=== PATIENT | female | born 1985 | race African-American/Black ===

== ENCOUNTER 2016-07-08 23:50 | Emergency (ER) | payer OTHER ==
[~2016-07-08] VITALS: Ht 160 cm; Wt 108.9 kg
[2016-07-09 00:11] VITALS: BP 130/90
== END 2016-07-09 07:11 | disposition home or self-care (01) ==
LOC: ER 23:50
DX: G47.00 Insomnia, unspecified (principal); F41.9 Anxiety disorder, unspecified; F20.9 Schizophrenia, unspecified; F32.9 Major depressive disorder, single episode, unspecified; E11.9 Type 2 diabetes mellitus without complications; I10 Essential (primary) hypertension; F17.210 Nicotine dependence, cigarettes, uncomplicated

== ENCOUNTER 2016-07-09 08:28 | Emergency (ER) | payer MEDICAID, OTHER ==
[~2016-07-09] VITALS: Ht 160 cm; Wt 108.9 kg
[2016-07-09 08:34] VITALS: BP 153/109
[2016-07-09 09:21] LABS: Basophils # (auto) 0.2 uL; Basophils % (auto) 2.5 % (0.0-2.0); DEFINITIVE VIEW TRANSMISSION; Eosinophils # (auto) 0.3 uL; Hematocrit 36.9 % (36.0-46.0); Hemoglobin 12.2 g/dL (12.2-16.2); Lymphocytes # (auto) 2.2 uL; Lymphocytes % (auto) 24.7 % (10.0-50.0); Mean Corpuscular Volume 78.9 fL (80.0-100.0); Mean Platelet Volume 7.8 fL (7.4-10.4); Monocytes # (auto) 1.2 uL; Monocytes % (auto) 13.2 % (0.0-12.0); Neutrophils % (auto) 56.6 % (37.0-80.0); Platelet Count (auto) 472 10^3/uL (140-450); Red Cell Distribution Width 16.1 % (11.6-16.0); White Blood Cell 8.8 10^3/uL (4.4-10.8)
[2016-07-09 09:29] LABS: Urine Bilirubin Negative (Negative); Urine Blood Negative /uL (Negative); Urine Color Yellow (Yellow); Urine Mucus FEW (None Seen); Urine Nitrite Negative (Negative); Urine RBC <1 /hpf (0 - 4); Urine Squamous Epithelial Cell MOD /hpf (<5); Urine pH 5.5 (5.0-8.0)
[2016-07-09 09:30] LABS: Urine Glucose 4+ mg/dL (Normal); Urine Ketone 2+ (Negative)
[2016-07-09 09:40] LABS: Albumin 3.3 g/dL (3.4-5.0); BUN/Creatinine Ratio 10.4; Calcium 9.1 mg/dL (8.5-10.1); Potassium 3.6 mmol/L (3.5-5.1)
[2016-07-09 09:42] LABS: Bilirubin, Total 0.5 mg/dL (0.2-1.0); Total Protein 7.8 g/dL (6.4-8.2)
== END 2016-07-09 10:20 | disposition home or self-care (01) ==
LOC: ER 08:28
DX: F41.9 Anxiety disorder, unspecified (principal); F32.9 Major depressive disorder, single episode, unspecified; F20.9 Schizophrenia, unspecified; E11.9 Type 2 diabetes mellitus without complications; I10 Essential (primary) hypertension; F17.210 Nicotine dependence, cigarettes, uncomplicated
CPT/HCPCS: 36415; 80053; 80307; 81001; 81025; 85025

== ENCOUNTER 2016-07-21 21:52 | Emergency (ER) | payer MEDICAID ==
[~2016-07-21] VITALS: Ht 167.6 cm; Wt 99.8 kg
[2016-07-21 23:22] LABS: Basophils # (auto) 0.1 uL; Basophils % (auto) 0.6 % (0.0-2.0); DEFINITIVE VIEW TRANSMISSION; Eosinophils # (auto) 0.3 uL; Eosinophils % (auto) 3.4 % (0.0-7.0); Hematocrit 39.3 % (36.0-46.0); Hemoglobin 12.7 g/dL (12.2-16.2); Lymphocytes % (auto) 31.1 % (10.0-50.0); Mean Corpuscular Hemoglobin 25.7 pg (28.0-32.0); Mean Corpuscular Hgb Conc. 32.4 g/dL (32.0-36.0); Mean Corpuscular Volume 79.4 fL (80.0-100.0); Mean Platelet Volume 7.8 fL (7.4-10.4); Monocytes # (auto) 1.2 uL; Monocytes % (auto) 12.8 % (0.0-12.0); Neutrophils % (auto) 52.1 % (37.0-80.0); Platelet Count (auto) 508 10^3/uL (140-450); White Blood Cell 9.5 10^3/uL (4.4-10.8)
[2016-07-21 23:41] LABS: Albumin 3.6 g/dL (3.4-5.0); BUN/Creatinine Ratio 12.3; Calcium 9.1 mg/dL (8.5-10.1); Potassium 4.2 mmol/L (3.5-5.1)
[2016-07-21 23:43] LABS: Bilirubin, Total 0.3 mg/dL (0.2-1.0); Total Protein 8.3 g/dL (6.4-8.2)
[2016-07-22 00:02] LABS: Urine Bilirubin Negative (Negative); Urine Blood 2+ /uL (Negative); Urine Color Yellow (Yellow); Urine Glucose 4+ mg/dL (Normal); Urine Hyaline Cast FEW /lpf (0 - 2); Urine Ketone Negative (Negative); Urine Nitrite Negative (Negative); Urine RBC 1 /hpf (0 - 4); Urine Squamous Epithelial Cell FEW /hpf (<5); Urine Urobilinogen Normal (Negative)
[2016-07-22 04:00] VITALS: BP 161/127
== END 2016-07-22 04:03 | disposition home or self-care (01) ==
LOC: EDBD 21:52 → ER 21:57
DX: R51 Headache (principal); F41.9 Anxiety disorder, unspecified; E11.9 Type 2 diabetes mellitus without complications; I10 Essential (primary) hypertension; E78.5 Hyperlipidemia, unspecified; F31.9 Bipolar disorder, unspecified; F20.9 Schizophrenia, unspecified; F17.210 Nicotine dependence, cigarettes, uncomplicated; Z85.3 Personal history of malignant neoplasm of breast
CPT/HCPCS: 36415; 70450; 80053; 80307; 81001; 81025; 85025

== ENCOUNTER 2016-08-09 22:13 | Emergency (ER) | payer MEDICAID ==
[~2016-08-09] VITALS: Ht 167.6 cm; Wt 127.0 kg
[2016-08-10] MEDS ORDERED: LORazepam 2MG/ML-1ML VIAL IV ONE (03:15)
[2016-08-10] MEDS ORDERED: diphenhdrAMINE HCL 50 MG/1 ML VL IV ONE (03:15)
[2016-08-10] MEDS ORDERED: HALOPERIDOL LACTATE 5 MG/ML INJ VIAL IM ONE (03:15)
[2016-08-10 04:07] LABS: Basophils # (auto) 0 uL; Basophils % (auto) 0.4 % (0.0-2.0); CONDITION Y; DEFINITIVE SEE PRINTOUT; Eosinophils # (auto) 0.1 uL; Eosinophils % (auto) 0.9 % (0.0-7.0); Hematocrit 40.1 % (36.0-46.0); Hemoglobin 12.8 g/dL (12.2-16.2); Lymphocytes # (auto) 2.3 uL; Lymphocytes % (auto) 20.3 % (10.0-50.0); Mean Corpuscular Hemoglobin 25.2 pg (28.0-32.0); Mean Corpuscular Volume 78.7 fL (80.0-100.0); Mean Platelet Volume 8.1 fL (7.4-10.4); Monocytes # (auto) 1.4 uL; Monocytes % (auto) 12.7 % (0.0-12.0); Neutrophils # (auto) 7.3 uL; Neutrophils % (auto) 65.7 % (37.0-80.0); Platelet Count (auto) 518 10^3/uL (140-450); White Blood Cell 11.2 10^3/uL (4.4-10.8)
[2016-08-10 04:29] LABS: Anion Gap 11 (5-15); BUN/Creatinine Ratio 15.3; Blood Urea Nitrogen 11 mg/dL (7-18); Calcium 9.2 mg/dL (8.5-10.1); Carbon Dioxide 22 mmol/L (21-32); Chloride 112 mmol/L (98-107); GFR African American 122 mL/min; GFR Non-African American 101 mL/min; Glucose 108 mg/dL (74-106); Potassium 3.9 mmol/L (3.5-5.1); Sodium 145 mmol/L (136-145)
[2016-08-10 08:15] LABS: Urine Bilirubin Negative (Negative); Urine Blood Negative /uL (Negative); Urine Color Yellow (Yellow); Urine Mucus FEW (None Seen); Urine Nitrite Negative (Negative); Urine RBC <1 /hpf (0 - 4); Urine Squamous Epithelial Cell FEW /hpf (<5); Urine Urobilinogen Normal (Negative); Urine pH 6.5 (5.0-8.0)
[2016-08-10 08:16] LABS: Urine Glucose 3+ mg/dL (Normal); Urine Ketone 3+ (Negative)
[2016-08-10] MEDS ORDERED: METF-370 PO (09:50)
[2016-08-10] MEDS ORDERED: CANA100T PO (09:50)
[2016-08-10] MEDS ORDERED: ALPR1TAB7 PO (09:50)
[2016-08-10] MEDS ORDERED: AMLO10TA2 PO (09:50)
[2016-08-10] MEDS ORDERED: FLUO20CA90 PO (09:50)
[2016-08-10] MEDS ORDERED: TOPI100T68 PO (09:52)
[2016-08-10] MEDS ORDERED: HYDR50CA2 PO (09:52)
[2016-08-10] MEDS ORDERED: TOPIRAMATE 100 MG TAB PO ONE (11:00)
[2016-08-10] MEDS ORDERED: metFORMIN HYDROCHLORIDE 500 MG TAB PO ONE (11:00)
[2016-08-10] MEDS ORDERED: metFORMIN HYDROCHLORIDE 850 MG TAB PO ONE (11:00)
[2016-08-10] MEDS ORDERED: hydrOXYzine PAMOATE 25 MG CAP PO ONE (11:00)
[2016-08-10] MEDS ORDERED: FLUoxetine HCL 20 MG CAP PO ONE (11:00)
[2016-08-10] MEDS ORDERED: ALPRAZolam 0.5 MG TAB PO ONE (11:00)
[2016-08-10] MEDS ORDERED: amLODIPine BESYLATE 5 MG TAB PO ONE (11:00)
[2016-08-10] MEDS ORDERED: metFORMIN HYDROCHLORIDE 850 MG TAB PO SCH (18:00)
[2016-08-10] MEDS: metFORMIN HYDROCHLORIDE 500 MG TAB PO SCH (21:22)
[2016-08-11] MEDS: ALPRAZolam 0.5 MG TAB PO SCH ×3 (04:20→22:11)
[2016-08-11] MEDS: metFORMIN HYDROCHLORIDE 500 MG TAB PO SCH ×2 (08:38→19:02)
[2016-08-11] MEDS: hydrOXYzine PAMOATE 25 MG CAP PO SCH (10:00)
[2016-08-11] MEDS: TOPIRAMATE 100 MG TAB PO SCH (10:00)
[2016-08-11] MEDS: FLUoxetine HCL 20 MG CAP PO SCH (10:25)
[2016-08-11] MEDS: amLODIPine BESYLATE 5 MG TAB PO SCH (10:25)
[2016-08-11] MEDS ORDERED: QUEtiapine FUMARATE 100 MG TAB PO SCH (22:00)
[2016-08-12] MEDS ORDERED: metFORMIN HYDROCHLORIDE 500 MG TAB ONE ×2 (08:07→18:52)
[2016-08-12] MEDS: metFORMIN HYDROCHLORIDE 500 MG TAB PO SCH ×2 (08:21→18:00)
[2016-08-12] MEDS ORDERED: FLUoxetine HCL 10 MG CAP ONE (10:07)
[2016-08-12] MEDS ORDERED: TOPIRAMATE 100 MG TAB ONE (10:07)
[2016-08-12] MEDS ORDERED: amLODIPine BESYLATE 5 MG TAB ONE (10:07)
[2016-08-12] MEDS ORDERED: ALPRAZolam 0.5 MG TAB ONE (10:09)
[2016-08-12] MEDS ORDERED: hydrOXYzine PAMOATE 25 MG CAP ONE (10:09)
[2016-08-12 10:13] VITALS: BP 147/99
[2016-08-12] MEDS: ALPRAZolam 0.5 MG TAB PO SCH (10:18)
[2016-08-12] MEDS: hydrOXYzine PAMOATE 25 MG CAP PO SCH (10:18)
[2016-08-12] MEDS: FLUoxetine HCL 20 MG CAP PO SCH (10:18)
[2016-08-12] MEDS: TOPIRAMATE 100 MG TAB PO SCH (10:18)
[2016-08-12] MEDS: amLODIPine BESYLATE 5 MG TAB PO SCH (10:18)
== END 2016-08-12 21:50 | disposition home or self-care (01) ==
LOC: ER 22:15
DX: F32.9 Major depressive disorder, single episode, unspecified (principal); F41.9 Anxiety disorder, unspecified; R45.851 Suicidal ideations; E11.9 Type 2 diabetes mellitus without complications; F20.1 Disorganized schizophrenia; I10 Essential (primary) hypertension; Z85.3 Personal history of malignant neoplasm of breast; F17.210 Nicotine dependence, cigarettes, uncomplicated
CPT/HCPCS: 36415; 80048; 80307; 80320; 81001; 82962; 84443; 84702; 85025; 96372; 96374; 96375; 99285; J1200; J1630; J2060; J7030

== ENCOUNTER 2016-12-26 23:44 | Emergency (ER) | payer MEDICAID ==
[~2016-12-26] VITALS: Ht 162.6 cm; Wt 90.7 kg
[~2016-12-26 23:44] MED LIST: ALPR1TAB7 PO; AMLO10TA2 PO; CANA100T PO; FLUO20CA90 PO; HYDR50CA2 PO; METF-370 PO; TOPI100T68 PO
[2016-12-27] MEDS ORDERED: cloNIDine HCL 0.1 MG TAB PO ONE ×2 (00:30→03:30)
[2016-12-27 03:24] VITALS: BP 162/118
[2016-12-27] MEDS ORDERED: LORazepam 0.5 MG TAB PO ONE (03:45)
== END 2016-12-27 05:20 | disposition home or self-care (01) ==
LOC: EDBD 23:44 → ER 23:49
DX: I10 Essential (primary) hypertension (principal); J06.9 Acute upper respiratory infection, unspecified; E11.9 Type 2 diabetes mellitus without complications; F17.210 Nicotine dependence, cigarettes, uncomplicated; Z79.899 Other long term (current) drug therapy

== ENCOUNTER 2016-12-28 21:15 | Emergency (ER) | payer MEDICAID ==
[~2016-12-28] VITALS: Ht 160 cm; Wt 108.9 kg
[2016-12-28 21:26] VITALS: BP 164/105
== END 2016-12-29 06:33 | disposition home or self-care (01) ==
LOC: ER 21:19
DX: R51 Headache (principal); E11.9 Type 2 diabetes mellitus without complications; I10 Essential (primary) hypertension; F17.210 Nicotine dependence, cigarettes, uncomplicated
CPT/HCPCS: 70450; 70486; 82962

== ENCOUNTER → 2017-02-04 | Emergency (ER) | payer MEDICAID | END | disposition left against medical advice (07) | LOC: ER 16:59 | DX: R51 Headache (principal); Z53.21 Procedure and treatment not carried out due to patient leaving prior to being seen by health care provider ==

== ENCOUNTER 2017-02-12 20:41 | Emergency (ER) | payer MEDICAID ==
[~2017-02-12] VITALS: Ht 160 cm; Wt 127.0 kg
[2017-02-12 20:51] VITALS: BP 149/108
[2017-02-12 21:23] LABS: Basophils # (auto) 0.1 uL; Basophils % (auto) 1.6 % (0.0-2.0); Eosinophils # (auto) 0.2 uL; Eosinophils % (auto) 3.5 % (0.0-7.0); Hematocrit 43.6 % (36.0-46.0); Lymphocytes # (auto) 2.3 uL; Mean Corpuscular Hemoglobin 31.8 pg (28.0-32.0); Mean Corpuscular Hgb Conc. 34.3 g/dL (32.0-36.0); Mean Corpuscular Volume 92.5 fL (80.0-100.0); Monocytes # (auto) 0.7 uL; Monocytes % (auto) 10.4 % (0.0-12.0); Neutrophils # (auto) 3.4 uL; Neutrophils % (auto) 50.5 % (37.0-80.0); Nucleated Red Blood Cells % 0.2 %; Platelet Count (auto) 303 10^3/uL (140-450); Red Blood Cells 4.72 10^6/uL (4.0-5.20); Red Cell Distribution Width 13.6 % (11.8-14.3); White Blood Cell 6.7 10^3/uL (4.4-10.8)
[2017-02-12 21:51] LABS: Alanine Aminotransferase 55 U/L (13-56); Albumin 4.3 g/dL (3.4-5.0); Alkaline Phosphatase 83 U/L (45-117); Anion Gap 11 (5-15); Aspartate Aminotransferase 30 U/L (15-37); Bilirubin, Total 0.5 mg/dL (0.2-1.0); Blood Alcohol < 3.0 mg/dL (0-5); Blood Urea Nitrogen 11 mg/dL (7-18); Calcium 8.9 mg/dL (8.5-10.1); Carbon Dioxide 24 mmol/L (21-32); Chloride 103 mmol/L (98-107); GFR African American 147 mL/min; GFR Non-African American 122 mL/min; Glucose 137 mg/dL (74-106); Potassium 3.5 mmol/L (3.5-5.1); Sodium 138 mmol/L (136-145); Total Protein 7.7 g/dL (6.4-8.2)
[2017-02-12] MEDS ORDERED: ACETAMINOPHEN 325 MG TAB PO ONE (22:15)
== END 2017-02-13 07:10 | disposition home or self-care (01) ==
LOC: EDBD 20:41 → ER 20:43
DX: F41.9 Anxiety disorder, unspecified (principal); F20.9 Schizophrenia, unspecified; E11.9 Type 2 diabetes mellitus without complications; F32.9 Major depressive disorder, single episode, unspecified; I10 Essential (primary) hypertension; F17.210 Nicotine dependence, cigarettes, uncomplicated
CPT/HCPCS: 36415; 80053; 80320; 85025

== ENCOUNTER 2017-09-15 05:51 | Emergency (ER) | payer MEDICAID ==
[~2017-09-15] VITALS: Ht 162.6 cm; Wt 90.7 kg
[2017-09-15] MEDS ORDERED: cloNIDine HCL 0.1 MG TAB ONE (06:04)
[2017-09-15 06:12] VITALS: BP 200/120
[2017-09-15] MEDS ORDERED: cloNIDine HCL 0.1 MG TAB PO ONE (06:30)
[2017-09-15 06:55] LABS: Alcohol, Urine < 3.0 mg/dL (0-5); Amphetamine Screen, Urine NEGATIVE (NEGATIVE); Barbiturate Scree,Urine NEGATIVE (NEGATIVE); Benzodiazephine Screen, Urine NEGATIVE (NEGATIVE); Cannabinoid Screen, Urine NEGATIVE (NEGATIVE); Cocaine Screen, Urine NEGATIVE (NEGATIVE); Opiate Scree,Urine NEGATIVE (NEGATIVE); Phencyclidine Screen, Urine NEGATIVE (NEGATIVE)
[2017-09-15 07:21] LABS: Basophils # (auto) 0.1 uL; Eosinophils # (auto) 0.2 uL; Eosinophils % (auto) 2.3 % (0.0-7.0); Hematocrit 36.9 % (36.0-46.0); Hemoglobin 12.5 g/dL (12.2-16.2); Lymphocytes # (auto) 1.7 uL; Lymphocytes % (auto) 25.3 % (10.0-50.0); Mean Corpuscular Hemoglobin 29.6 pg (28.0-32.0); Mean Corpuscular Hgb Conc. 33.9 g/dL (32.0-36.0); Mean Corpuscular Volume 87.4 fL (80.0-100.0); Monocytes # (auto) 0.8 uL; Monocytes % (auto) 11.8 % (0.0-12.0); Neutrophils % (auto) 59.6 % (37.0-80.0); Nucleated Red Blood Cells % 0.1 %; Platelet Count (auto) 310 10^3/uL (140-450); Red Blood Cells 4.22 10^6/uL (4.0-5.20); Red Cell Distribution Width 14.3 % (11.8-14.3); White Blood Cell 6.7 10^3/uL (4.4-10.8)
[2017-09-15 07:39] LABS: Albumin 3.7 g/dL (3.4-5.0); Anion Gap 11 (5-15); BUN/Creatinine Ratio 12.3; Blood Alcohol < 3.0 mg/dL (0-5); Blood Urea Nitrogen 10 mg/dL (7-18); Calcium 8.8 mg/dL (8.5-10.1); Carbon Dioxide 20 mmol/L (21-32); Chloride 111 mmol/L (98-107); GFR African American 105 mL/min; GFR Non-African American 87 mL/min; Glucose 108 mg/dL (74-106); Potassium 3.9 mmol/L (3.5-5.1); Sodium 142 mmol/L (136-145)
[2017-09-15 07:40] LABS: Salicylate 2.6 mg/dL (2.8-20.0)
[2017-09-15 07:42] LABS: Acetaminophen < 2.0 ug/mL (10-30); Alanine Aminotransferase 33 U/L (13-56); Alkaline Phosphatase 74 U/L (45-117); Aspartate Aminotransferase 22 U/L (15-37); Bilirubin, Total 0.8 mg/dL (0.2-1.0); Total Protein 7.1 g/dL (6.4-8.2)
[2017-09-15] MEDS ORDERED: LORazepam 2MG/ML-1ML VIAL ONE (08:05)
[2017-09-15] MEDS ORDERED: LORazepam 2MG/ML-1ML VIAL IV ONE (08:10)
[2017-09-15] MEDS ORDERED: LORazepam 0.5 MG TAB PO ONE (08:15)
== END 2017-09-15 09:48 | disposition home or self-care (01) ==
LOC: EDBD 05:51 → EDUNIT# 05:51 → ER 05:51
DX: F41.9 Anxiety disorder, unspecified (principal); F20.9 Schizophrenia, unspecified; F31.9 Bipolar disorder, unspecified; I10 Essential (primary) hypertension; E11.9 Type 2 diabetes mellitus without complications; F17.210 Nicotine dependence, cigarettes, uncomplicated
CPT/HCPCS: 36415; 80053; 80307; 80320; 80329; 85025; 96374; 99284; J2060

== ENCOUNTER 2018-12-11 19:40 | Emergency (ER) | payer MEDICAID ==
[~2018-12-11] VITALS: Ht 177.8 cm; Wt 113.4 kg
[~2018-12-11 19:40] MED LIST changes: +AMLO10TA13 PO; -AMLO10TA2 PO
[2018-12-11 21:06] LABS: Basophils # (auto) 0.1 uL; Basophils % (auto) 1.3 % (0.0-2.0); Eosinophils # (auto) 0.4 uL; Eosinophils % (auto) 4.2 % (0.0-7.0); Hematocrit 42.2 % (36.0-46.0); Hemoglobin 14.3 g/dL (12.2-16.2); Lymphocytes # (auto) 2.5 uL; Lymphocytes % (auto) 30.4 % (10.0-50.0); Mean Corpuscular Hemoglobin 30.6 pg (28.0-32.0); Mean Corpuscular Hgb Conc. 33.9 g/dL (32.0-36.0); Mean Corpuscular Volume 90.3 fL (80.0-100.0); Monocytes # (auto) 0.9 uL; Monocytes % (auto) 10.3 % (0.0-12.0); Neutrophils # (auto) 4.5 uL; Neutrophils % (auto) 53.8 % (37.0-80.0); Platelet Count (auto) 303 10^3/uL (140-450); Red Blood Cells 4.67 10^6/uL (4.0-5.20); Red Cell Distribution Width 13.5 % (11.8-14.3); White Blood Cell 8.3 10^3/uL (4.4-10.8)
[2018-12-11 21:30] LABS: Albumin 3.8 g/dL (3.4-5.0); BUN/Creatinine Ratio 5.7; Bilirubin, Total 0.4 mg/dL (0.2-1.0); Calcium 8.9 mg/dL (8.5-10.1); Potassium 3.5 mmol/L (3.5-5.1); Total Protein 7.1 g/dL (6.4-8.2)
[2018-12-11 22:45] VITALS: BP 117/95
[2018-12-12] MEDS ORDERED: IPRATROPIUM BROM 0.5 MG/2.5ML INH SOL NEB ONE
[2018-12-12] MEDS ORDERED: methylPREDNISolone SOD SUCC 125 MG/2 ML VL IV ONE
[2018-12-12] MEDS ORDERED: ALBUTEROL SULF 2.5 MG/0.5ML(0.5%) NEB SOLN NEB ONE
[2018-12-12] MEDS ORDERED: cefTRIAXone 1GM/50ML D5W 50 ML IV ONE
== END 2018-12-12 02:38 | disposition home or self-care (01) ==
LOC: EDBD 19:40 → ER 19:40
DX: J44.1 Chronic obstructive pulmonary disease with (acute) exacerbation (principal); J01.00 Acute maxillary sinusitis, unspecified; E11.9 Type 2 diabetes mellitus without complications; I10 Essential (primary) hypertension; F17.210 Nicotine dependence, cigarettes, uncomplicated
CPT/HCPCS: 36415; 71045; 80053; 85025; 94640; 96365; 96375; 99284; J0696; J2930; J7611; J7644

== ENCOUNTER 2021-05-31 18:16 | Emergency (ER) | payer MEDICAID ==
[~2021-05-31] VITALS: Ht 167.6 cm; Wt 131.5 kg
[~2021-05-31 18:16] MED LIST changes: +AMLO-496 PO; -AMLO10TA13 PO
[2021-06-01 05:32] VITALS: BP 144/98
== END 2021-06-01 05:24 | disposition left against medical advice (07) ==
LOC: EDBD 18:16 → ER 18:16
DX: R45.851 Suicidal ideations (principal); F20.9 Schizophrenia, unspecified; I10 Essential (primary) hypertension

== ENCOUNTER 2021-10-31 13:03 | Emergency (ER) | payer MEDICAID ==
[~2021-10-31] VITALS: Ht 172.7 cm; Wt 136.4 kg
[2021-10-31] MEDS ORDERED: LORazepam 2MG/ML-1ML VIAL IV ONE (13:15)
[2021-10-31 13:19] VITALS: BP 121/86
[2021-10-31 13:40] LABS: Basophils # (auto) 0.1 10 ^3/uL (0-0.2); Basophils % (auto) 1.3 % (0.0-2.0); Eosinophils # (auto) 0.2 10 ^3/uL (0-0.8); Eosinophils % (auto) 4.7 % (0.0-7.0); Hematocrit 44.2 % (36.0-46.0); Hemoglobin 14.4 g/dL (12.2-16.2); Lymphocytes # (auto) 1.9 10 ^3/uL (0.4-5.4); Lymphocytes % (auto) 39.4 % (10.0-50.0); Mean Corpuscular Hemoglobin 29.1 pg (28.0-32.0); Mean Corpuscular Hgb Conc. 32.5 g/dL (32.0-36.0); Mean Corpuscular Volume 89.7 fL (80.0-100.0); Monocytes # (auto) 0.5 10 ^3/uL (0-1.3); Monocytes % (auto) 11.3 % (0.0-12.0); Neutrophils # (auto) 2.1 10 ^3/uL (1.6-8.6); Neutrophils % (auto) 43.3 % (37.0-80.0); Nucleated Red Blood Cells % 0.2 %; Red Blood Cells 4.93 10^6/uL (4.0-5.20); Red Cell Distribution Width 13.4 % (11.8-14.3); White Blood Cell 4.8 10^3/uL (4.4-10.8)
[2021-10-31] MEDS ORDERED: LORazepam 0.5 MG TAB PO ONE (13:45)
[2021-10-31 14:00] LABS: Albumin 3.5 g/dL (3.4-5.0); Calcium 8.7 mg/dL (8.5-10.1); Potassium 3.8 mmol/L (3.5-5.1)
[2021-10-31 14:03] LABS: BUN/Creatinine Ratio 17.2; Bilirubin, Total 0.6 mg/dL (0.2-1.0); Total Protein 6.5 g/dL (6.4-8.2)
[2021-10-31 18:08] LABS: Urine Bacteria FEW /hpf (None Seen); Urine Blood Negative /uL (Negative); Urine Specific Gravity 1.003 (1.001-1.035); Urine WBC <1 /hpf (0 - 5)
[2021-10-31 18:20] LABS: Alcohol, Urine < 3.0 mg/dL (0-10); Amphetamine Screen, Urine NEGATIVE (NEGATIVE); Barbiturate Scree,Urine NEGATIVE (NEGATIVE); Benzodiazephine Screen, Urine NEGATIVE (NEGATIVE); Cannabinoid Screen, Urine NEGATIVE (NEGATIVE); Cocaine Screen, Urine NEGATIVE (NEGATIVE); Opiate Scree,Urine NEGATIVE (NEGATIVE); Phencyclidine Screen, Urine NEGATIVE (NEGATIVE)
== END 2021-10-31 22:15 | disposition home or self-care (01) ==
LOC: ER 13:03 → EDBD 13:03 → ER 22:15
DX: F41.8 Other specified anxiety disorders (principal); I10 Essential (primary) hypertension; E11.9 Type 2 diabetes mellitus without complications; F17.210 Nicotine dependence, cigarettes, uncomplicated; Z79.899 Other long term (current) drug therapy; Z88.8 Allergy status to other drugs, medicaments and biological substances
CPT/HCPCS: 36415; 71045; 80053; 80307; 81001; 81025; 85025; 85379; 93005

== ENCOUNTER 2022-07-03 11:10 | Emergency (ER) | payer MEDICAID ==
[~2022-07-03] VITALS: Ht 157.5 cm; Wt 140.4 kg
[2022-07-03 13:56] LABS: Basophils # (auto) 0.1 10 ^3/uL (0-0.2); Basophils % (auto) 1.1 % (0.0-2.0); Eosinophils # (auto) 0.2 10 ^3/uL (0-0.8); Eosinophils % (auto) 2.9 % (0.0-7.0); Hematocrit 48.1 % (36.0-46.0); Hemoglobin 16.1 g/dL (12.2-16.2); Lymphocytes # (auto) 1.7 10 ^3/uL (0.4-5.4); Lymphocytes % (auto) 23.6 % (10.0-50.0); Mean Corpuscular Hemoglobin 30.3 pg (28.0-32.0); Mean Corpuscular Hgb Conc. 33.5 g/dL (32.0-36.0); Mean Corpuscular Volume 90.2 fL (80.0-100.0); Monocytes % (auto) 13.5 % (0.0-12.0); Neutrophils # (auto) 4.2 10 ^3/uL (1.6-8.6); Neutrophils % (auto) 58.9 % (37.0-80.0); Nucleated Red Blood Cells % 0.1 %; Red Blood Cells 5.33 10^6/uL (4.0-5.20); White Blood Cell 7.1 10^3/uL (4.4-10.8)
[2022-07-03 14:16] LABS: Albumin 3.9 g/dL (3.4-5.0); Calcium 9.5 mg/dL (8.5-10.1); Potassium 3.6 mmol/L (3.5-5.1)
[2022-07-03 14:20] LABS: BUN/Creatinine Ratio 7.5 (10.0-20.0); Bilirubin, Total 0.7 mg/dL (0.2-1.0); Total Protein 7.6 g/dL (6.4-8.2)
[2022-07-03 14:52] VITALS: BP 172/97
[2022-07-03] MEDS: cloNIDine HCL 0.1 MG TAB PO ONE (15:07)
[2022-07-03 15:56] LABS: Urine Bacteria FEW /hpf (None Seen); Urine Blood Negative /uL (Negative); Urine Mucus FEW (None Seen); Urine Specific Gravity 1.028 (1.001-1.035); Urine WBC 1 /hpf (0 - 5)
== END 2022-07-03 16:28 | disposition home or self-care (01) ==
LOC: ER 11:10
DX: F20.9 Schizophrenia, unspecified (principal); I10 Essential (primary) hypertension; R80.9 Proteinuria, unspecified; E11.8 Type 2 diabetes mellitus with unspecified complications; F17.210 Nicotine dependence, cigarettes, uncomplicated; F41.9 Anxiety disorder, unspecified; Z32.02 Encounter for pregnancy test, result negative; Z88.6 Allergy status to analgesic agent
CPT/HCPCS: 36415; 80053; 81001; 81025; 85025

== ENCOUNTER 2023-01-10 11:36 | Emergency (ER) | payer MEDICAID ==
[~2023-01-10] VITALS: Ht 157.5 cm; Wt 137.0 kg
[~2023-01-10 11:36] MED LIST changes: -AMLO-496 PO; +AMLO1TAB23 PO
[2023-01-10 12:23] VITALS: BP 132/75; PULSE 107; RESP 18; O2SAT 98
[2023-01-10 14:10] LABS: Alanine Aminotransferase 24 U/L (7-40); Albumin 4.3 g/dL (3.2-4.8); Alkaline Phosphatase 70 U/L (46-116); Anion Gap 8 (5-15); Aspartate Aminotransferase 19 U/L (13-40); BUN/Creatinine Ratio 8.3 (10.0-20.0); Bilirubin, Total 0.5 mg/dL (0.2-1.0); Blood Urea Nitrogen 9 mg/dL (9-23); Calcium 9.5 mg/dL (8.5-10.1); Carbon Dioxide 25 mmol/L (20-30); Chloride 104 mmol/L (98-107); Glucose 108 mg/dL (74-106); Potassium 3.5 mmol/L (3.5-5.1); Sodium 137 mmol/L (136-145)
[2023-01-10 14:11] LABS: Basophils # (auto) 0.1 10 ^3/uL (0-0.2); Basophils % (auto) 1.2 % (0.0-2.0); Eosinophils # (auto) 0.2 10 ^3/uL (0-0.8); Eosinophils % (auto) 3.3 % (0.0-7.0); Hematocrit 45.1 % (36.0-46.0); Hemoglobin 15.2 g/dL (12.2-16.2); Lymphocytes # (auto) 2.3 10 ^3/uL (0.4-5.4); Lymphocytes % (auto) 35.3 % (10.0-50.0); Mean Corpuscular Hemoglobin 31.1 pg (28.0-32.0); Mean Corpuscular Hgb Conc. 33.8 g/dL (32.0-36.0); Mean Corpuscular Volume 92.1 fL (80.0-100.0); Monocytes # (auto) 0.7 10 ^3/uL (0-1.3); Neutrophils # (auto) 3.2 10 ^3/uL (1.6-8.6); Neutrophils % (auto) 49.2 % (37.0-80.0); Red Blood Cells 4.89 10^6/uL (4.0-5.20); Red Cell Distribution Width 13.7 % (11.8-14.3); Total Protein 6.6 g/dL (5.7-8.2); White Blood Cell 6.6 10^3/uL (4.4-10.8)
== END 2023-01-11 05:35 | disposition left against medical advice (07) ==
LOC: ER 11:36
DX: F41.9 Anxiety disorder, unspecified (principal); I10 Essential (primary) hypertension; E11.9 Type 2 diabetes mellitus without complications; F32.9 Major depressive disorder, single episode, unspecified; F20.9 Schizophrenia, unspecified; F17.210 Nicotine dependence, cigarettes, uncomplicated; Z85.9 Personal history of malignant neoplasm, unspecified; Z98.890 Other specified postprocedural states; Z88.8 Allergy status to other drugs, medicaments and biological substances; Z79.899 Other long term (current) drug therapy
CPT/HCPCS: 36415; 71045; 80053; 83880; 85025

== ENCOUNTER 2023-03-05 18:25 | Inpatient (IN) | payer MEDICAID ==
[~2023-03-05] VITALS: Ht 157.5 cm; Wt 139.1 kg
[2023-03-05] MEDS ORDERED: cloNIDine HCL 0.1 MG TAB PO ONE (19:00)
[2023-03-05 19:33] LABS: Basophils # (auto) 0.1 10 ^3/uL (0-0.2); Basophils % (auto) 1.2 % (0.0-2.0); Eosinophils # (auto) 0.3 10 ^3/uL (0-0.8); Eosinophils % (auto) 2.6 % (0.0-7.0); Hematocrit 44.4 % (36.0-46.0); Hemoglobin 14.9 g/dL (12.2-16.2); Lymphocytes # (auto) 2.8 10 ^3/uL (0.4-5.4); Lymphocytes % (auto) 28.4 % (10.0-50.0); Mean Corpuscular Hemoglobin 30.5 pg (28.0-32.0); Mean Corpuscular Hgb Conc. 33.5 g/dL (32.0-36.0); Mean Corpuscular Volume 91.1 fL (80.0-100.0); Monocytes # (auto) 1.2 10 ^3/uL (0-1.3); Monocytes % (auto) 11.7 % (0.0-12.0); Neutrophils # (auto) 5.6 10 ^3/uL (1.6-8.6); Neutrophils % (auto) 56.1 % (37.0-80.0); Nucleated Red Blood Cells % 0.1 %; Red Blood Cells 4.88 10^6/uL (4.0-5.20); Red Cell Distribution Width 13.2 % (11.8-14.3)
[2023-03-05] MEDS ORDERED: ACETAMINOPHEN 325 MG TAB PO ONE (19:45)
[2023-03-05] MEDS ORDERED: LORazepam 0.5 MG TAB PO ONE (19:45)
[2023-03-05] MEDS ORDERED: amLODIPine BESYLATE 5 MG TAB PO ONE (19:45)
[2023-03-05] MEDS ORDERED: FAMOTIDINE 20 MG TAB PO ONE (19:45)
[2023-03-05 19:48] VITALS: PULSE 91; RESP 18; O2SAT 94
[2023-03-05 19:54] LABS: Alanine Aminotransferase 26 U/L (7-40); Albumin 4.2 g/dL (3.2-4.8); Alkaline Phosphatase 69 U/L (46-116); Anion Gap 6 (5-15); Aspartate Aminotransferase 22 U/L (13-40); BUN/Creatinine Ratio 13.7 (10.0-20.0); Bilirubin, Total 0.9 mg/dL (0.2-1.0); Blood Urea Nitrogen 13 mg/dL (9-23); Calcium 9.2 mg/dL (8.7-10.4); Carbon Dioxide 24 mmol/L (20-30); Chloride 107 mmol/L (98-107); Glucose 96 mg/dL (74-106); Sodium 137 mmol/L (136-145); Total Protein 6.3 g/dL (5.7-8.2)
[2023-03-05 20:06] LABS: Urine Bacteria MOD /hpf (None Seen); Urine Blood Negative /uL (Negative); Urine Clarity Clear (Clear); Urine Color Colorless (Yellow); Urine Protein, UAD Negative (Negative); Urine Specific Gravity 1.005 (1.001-1.035); Urine Urobilinogen Normal (Negative); Urine WBC <1 /hpf (0 - 5); Urine pH 5.5 (5.0-8.0)
[2023-03-05 20:18] LABS: Amphetamine Screen, Urine Neg (NEGATIVE); Barbiturate Scree,Urine Neg (NEGATIVE); Benzodiazephine Screen, Urine Neg (NEGATIVE); Cannabinoid Screen, Urine Neg (NEGATIVE); Cocaine Screen, Urine Neg (NEGATIVE); Opiate Scree,Urine Neg (NEGATIVE); Phencyclidine Screen, Urine Neg (NEGATIVE)
[2023-03-05 20:21] LABS: Magnesium 1.6 mg/dL (1.6-2.6)
[2023-03-05] MEDS ORDERED: ATORVASTATIN 20 MG TAB PO ONE (20:30)
[2023-03-05] MEDS ORDERED: ENOXAPARIN SOD 120 MG/0.8 ML SYRINGE SC ONE (20:30)
[2023-03-05] MEDS ORDERED: NITROGLYCERIN 0.4MG/HR TOPICAL PATCH TD ONE (20:30)
[2023-03-05] MEDS ORDERED: ASPirin 81 mg TAB PO ONE (20:30)
[2023-03-05 21:04] LABS: Triglycerides 125 mg/dL (< 150)
[2023-03-05 21:05] LABS: LDL Cholesterol 110 mg/dL (< 100)
[2023-03-05 21:06] LABS: Cholesterol 163 mg/dL (< 200); HDL Cholesterol 35 mg/dL (40-59)
[2023-03-05 21:30] LABS: Blood Alcohol 5.8 mg/dL (<10)
[2023-03-05] MEDS ORDERED: DOCUSATE SOD 100 MG CAP PO PRN (22:15)
[2023-03-05] MEDS ORDERED: NITROGLYCERIN 0.4 MG SL TAB SL PRN (22:15)
[2023-03-05] MEDS ORDERED: MORPHINE SULFATE INJ 2 MG/ml SYRG IV PRN ×2 (22:15)
[2023-03-05] MEDS ORDERED: ONDANSETRON HCL 4 MG/2 ML VIAL IV PRN (22:15)
[2023-03-05] MEDS ORDERED: HYDROcodone-ACET 5/325MG TAB PO PRN (22:15)
[2023-03-05] MEDS ORDERED: ACETAMINOPHEN 325 MG TAB PO PRN (22:15)
[2023-03-05] MEDS ORDERED: hydrALAZINE HCL 20 MG/ML VL IV PRN (22:15)
[2023-03-05] MEDS ORDERED: LABETALOL HCL 5 MG/ML 4ML SYRINGE IV PRN (22:15)
[2023-03-05] MEDS ORDERED: METOPROLOL TARTRATE 25 MG TAB PO SCH (22:15)
[2023-03-05] MEDS ORDERED: DEXTROSE (50%) 50ML SYRG IV PRN (22:30)
[2023-03-05] MEDS ORDERED: IOHEXOL 350 MG/ML 100ML IJ ONE (22:51)
[2023-03-06] MEDS ORDERED: ATORVASTATIN 20 MG TAB ONE (00:33)
[2023-03-06] MEDS ORDERED: ASPirin-EC 81 mg tab PO ONE (00:33)
[2023-03-06] MEDS ORDERED: ENOXAPARIN SOD 120 MG/0.8 ML SYRINGE SC ONE (00:33)
[2023-03-06] MEDS ORDERED: NITROGLYCERIN 0.2MG/HR TOPICAL PATCH TD ONE (00:33)
[2023-03-06] MEDS ORDERED: LOSARTAN POTASSIUM 50 MG TAB PO SCH ×2 (10:00)
[2023-03-06] MEDS ORDERED: ENOXAPARIN SOD 40 MG/0.4 ML SYRINGE SC SCH ×2 (10:00)
[2023-03-06] MEDS ORDERED: NIFEdipine ER 30 MG TAB PO SCH (10:00)
[2023-03-06] MEDS ORDERED: buPROPion HCL 100 MG TAB PO SCH (10:00)
[2023-03-06] MEDS ORDERED: ASPirin 81 mg TAB PO SCH (10:00)
[2023-03-06] MEDS ORDERED: ATORVASTATIN 20 MG TAB PO SCH (10:00)
[2023-03-06] MEDS ORDERED: MAGNESIUM SULFATE 1GM/100ML 100 ML IV ONE (11:00)
[2023-03-06] MEDS ORDERED: cloNIDine HCL 0.1 MG TAB PO ONE (11:00)
[2023-03-06] MEDS ORDERED: hydroCHLOROthiazide 25 MG TAB PO ONE (11:00)
[2023-03-06] MEDS ORDERED: ENOXAPARIN SOD 40 MG/0.4 ML SYRINGE SC ONE (11:00)
[2023-03-06] MEDS ORDERED: DEXTROSE (50%) 50ML SYRG IV PRN (11:00)
[2023-03-06] MEDS ORDERED: ASPirin 81 mg TAB PO ONE (11:00)
[2023-03-06] MEDS ORDERED: hydrALAZINE HCL 20 MG/ML VL IV PRN (11:00)
[2023-03-06] MEDS ORDERED: NIFEdipine ER 30 MG TAB PO ONE (11:00)
[2023-03-06] MEDS ORDERED: ACCU-CHEK COMFORT CURVE STRIP VI SCH ×2 (11:30)
[2023-03-06] MEDS ORDERED: InsuLIN REG 1unit/0.01ml Soln (100units/ml) SC SCH ×3 (11:30→22:00)
[2023-03-06 12:12] VITALS: PULSE 89; RESP 17; TEMP 98.5; O2SAT 97
[2023-03-06 15:24] VITALS: BP 140/96; PULSE 91; RESP 18; O2SAT 96
[2023-03-06] MEDS ORDERED: cloNIDine HCL 0.1 MG TAB PO SCH (22:00)
[2023-03-07] MEDS ORDERED: hydroCHLOROthiazide 25 MG TAB PO SCH (10:00)
[2023-03-07] MEDS ORDERED: ENOXAPARIN SOD 40 MG/0.4 ML SYRINGE SC SCH (10:00)
[2023-03-07] MEDS ORDERED: NIFEdipine ER 30 MG TAB PO SCH (10:00)
[2023-03-07] MEDS ORDERED: ASPirin 81 mg TAB PO SCH (10:00)
== END 2023-03-06 16:24 | disposition home or self-care (01) | DRG 199 ==
LOC: EDBD 18:25 → ER 18:25 → TELE 22:24 → ER 22:24 → UNDODISIN 22:50 → UNDODEPER 03-06 14:35 → TELE 03-06 16:24
PROVIDERS: ADMIT Nurse Practitioner Family; ATTEND Nurse Practitioner Family
DX: I16.0 Hypertensive urgency (principal); I21.A1 Myocardial infarction type 2; E11.9 Type 2 diabetes mellitus without complications; Z68.43 Body mass index [BMI] 50.0-59.9, adult; F20.9 Schizophrenia, unspecified; F41.9 Anxiety disorder, unspecified; E66.01 Morbid (severe) obesity due to excess calories; E78.5 Hyperlipidemia, unspecified; F31.9 Bipolar disorder, unspecified; Z85.3 Personal history of malignant neoplasm of breast; Z88.8 Allergy status to other drugs, medicaments and biological substances; Z98.82 Breast implant status; Z79.4 Long term (current) use of insulin; Z91.199 Patient's noncompliance with other medical treatment and regimen due to unspecified reason
CPT/HCPCS: 36415; 71045; 71275; 80053; 80061; 80307; 80320; 81001; 82962; 83735; 84484; 85025; 93005; 99291; G0378; J1815

== ENCOUNTER 2023-12-16 12:46 | Emergency (ER) | payer MEDICAID ==
[~2023-12-16] VITALS: Ht 167.6 cm; Wt 113.6 kg
[~2023-12-16 12:46] MED LIST changes: +FLUO-470 PO; -FLUO20CA90 PO
[2023-12-16 13:37] LABS: Basophils # (auto) 0.1 10 ^3/uL (0-0.2); Basophils % (auto) 1.1 % (0.0-2.0); Eosinophils # (auto) 0.3 10 ^3/uL (0-0.8); Eosinophils % (auto) 3.4 % (0.0-7.0); Hematocrit 44.7 % (36.0-46.0); Hemoglobin 14.9 g/dL (12.2-16.2); Lymphocytes # (auto) 2.4 10 ^3/uL (0.4-5.4); Lymphocytes % (auto) 30.1 % (10.0-50.0); Mean Corpuscular Hemoglobin 30.4 pg (28.0-32.0); Mean Corpuscular Hgb Conc. 33.4 g/dL (32.0-36.0); Mean Corpuscular Volume 91.1 fL (80.0-100.0); Monocytes # (auto) 0.9 10 ^3/uL (0-1.3); Monocytes % (auto) 11.1 % (0.0-12.0); Neutrophils # (auto) 4.3 10 ^3/uL (1.6-8.6); Neutrophils % (auto) 54.3 % (37.0-80.0); Nucleated Red Blood Cells % 0.1 %; Platelet Count (auto) 281 10^3/uL (140-450); Red Blood Cells 4.91 10^6/uL (4.0-5.20); Red Cell Distribution Width 14.4 % (11.8-14.3); White Blood Cell 7.9 10^3/uL (4.4-10.8)
[2023-12-16 13:52] LABS: Anion Gap 3 (5-15); Carbon Dioxide 29 mmol/L (20-31); Chloride 106 mmol/L (98-107); Potassium 4.1 mmol/L (3.5-5.1); Sodium 138 mmol/L (136-145)
[2023-12-16 13:58] LABS: BUN/Creatinine Ratio 8.9 (10.0-20.0); Blood Urea Nitrogen 8 mg/dL (9-23); Glucose 124 mg/dL (74-106)
[2023-12-16] MEDS: amLODIPine BESYLATE 5 MG TAB PO ONE (14:15)
[2023-12-16 14:16] LABS: Urine Bacteria None Seen /hpf (None Seen)
[2023-12-16 14:35] LABS: Urine Blood Negative /uL (Negative); Urine Clarity Clear (Clear); Urine Color Light-Yellow (Yellow); Urine Protein, UAD TRACE (Negative); Urine Specific Gravity 1.024 (1.001-1.035); Urine Urobilinogen Normal (Negative); Urine WBC <1 /hpf (0 - 5); Urine pH 5.5 (5.0-9.0)
[2023-12-16 15:38] VITALS: TEMP 97.9
[2023-12-16] MEDS ORDERED: hydrALAZINE HCL 20 MG/ML VL IV ONE (17:00)
[2023-12-16] MEDS: NITROGLYCERIN 0.4 MG SL TAB SL ONE (17:01)
[2023-12-16 17:25] VITALS: BP 152/98; PULSE 92; RESP 17; O2SAT 96
== END 2023-12-16 19:16 | disposition home or self-care (01) ==
LOC: EDBD 12:46 → EDUNIT# 12:46 → ER 12:56
DX: I10 Essential (primary) hypertension (principal); E11.9 Type 2 diabetes mellitus without complications; F20.9 Schizophrenia, unspecified; F17.210 Nicotine dependence, cigarettes, uncomplicated; Z88.8 Allergy status to other drugs, medicaments and biological substances; Z79.899 Other long term (current) drug therapy; Z98.890 Other specified postprocedural states
CPT/HCPCS: 36415; 71046; 80048; 81001; 81025; 84484; 85025; 93005

== ENCOUNTER 2024-01-06 17:20 | Emergency (ER) | payer MEDICAID ==
[~2024-01-06] VITALS: Ht 160 cm; Wt 130.7 kg
[2024-01-06 18:50] VITALS: BP 170/95; PULSE 100; RESP 16; TEMP 97.6; O2SAT 95
[2024-01-06] MEDS ORDERED: PRED10TA PO (18:57)
[2024-01-06] MEDS ORDERED: ACET500T58 PO (18:57)
[2024-01-06] MEDS ORDERED: AMOX500T92 PO (18:57)
--- NOTE | 2024-01-06 18:58 | ED.PDOC ---
History of Present Illness HPI Comments 38-year-old female presents to ER with complaints of flu-like symptoms x2 days. Patient reports that she has been experiencing dry cough, sore throat and intermittent body aches x2 days with associated diarrhea x 1 day. Notes that others in her household has also been experiencing similar symptoms and denies any current pain. Denies use of medications for current symptoms. Patient presents to ER ambulatory, alert and oriented x 4 in no distress. 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 SENIOR BUSINESS BROKER History Family History Family History: Family hx of DM, Family hx of Cancer, Family hx of heart rohan Social History Smoker: Cigarettes, Less Than 1 Pack/Day Alcohol: Denies ETOH Use Drugs: Denies Drug Use Lives In: Home Constitutional: See HPI EENTM: See HPI Respiratory: See HPI Cardiovascular: No Symptoms Reported Gastrointestinal: See HPI Genitourinary: No Symptoms Reported Neurological: No Symptoms Reported Musculoskeletal: No Symptoms Reported Integumentary: No Symptoms Reported Allergic/Immunocompromised: others (Denies) Hematologic/Lymphatic: No Symptoms Reported Endocrine: No Symptoms Reported Psychiatric: No symptoms Reported Physical Exam General Appearance: No Apparent Distress, Obese HEENT: Normal ENT Inspection, PERRL/EOMI, Pharynx Normal, TMs Normal Neck: Full Range of Motion, Non-Tender, Normal Respiratory: Chest Non-Tender, Lungs Clear, No Accessory Muscle Use, No Respiratory Distress, Normal Breath Sounds Cardiovascular: No Murmur, No Gallop, Regular Rate/Rhythm Breast Exam: Deferred Gastrointestinal: NOT DONE Genitalia: Deferred Pelvic: Deferred Rectal: Deferred Extremities: Normal capillary refill, Normal range of motion Neurologic: Alert, rotary cutter II-XII nml as Tested, No Motor Deficits, Normal Affect, Normal Mood, No Sensory Deficits Cerebellar Function: Normal Reflexes: Normal Skin: Dry, Normal Color, Warm Peripheral Pulses: 2+ Radial (R), 2+ Radial (L), 2+ Brachial (R), 2+ Brachial (L) Lymphatic: No Adenopathy Was a procedure done? Was a procedure done?: No Sedation Sedation?: No Fever Differential Dx Differential Diagnosis: Pneumonia, Other (COVID-19, influenza) X-Ray, Labs, Meds, VS Vital Signs Date Time Temp Pulse Resp B/P (MAP) Pulse Ox O2 Delivery O2 Flow Rate FiO2 01/06/24 18:50 97.6 100 16 170/95 (120) 95 97.6 01/06/24 18:50 100 16 95 Room Air 01/06/24 18:02 99.0 106 18 170/95 (120) 99 Lab Test 01/06/24 18:24 Range/Units Influenza Type A Antigen Negative Negative Influenza Type B Antigen Negative Negative SARS-CoV-2 Antigen (Rapid) Negative NEGATIVE ADVISED TO DRINK PLENTY OF FLUIDS SMOKING CESSATION DISCUSSED AND ADVISED INFLUENZA A & B REVIEWED - NEGATIVE LEONARD REVIEWED - NEGATIVE PATIENT TOLERATING PO INTAKE WELL AND IN NO DISTRESS DURING ER VISIT/PRIOR TO DISCHARGE ADVISED TO MONITOR/RECORD BLOOD PRESSURE READINGS CLOSELY AT HOME ADVISED ON IMPORTANCE OF CONTINUING BLOOD PRESSURE MEDICATIONS PRESCRIBED ADVISED TO FOLLOW UP WITH PCP IN 1-2 DAYS PATIENT ALERT AND ORIENTED X4 PRIOR TO DISCHARGE. PATIENT VERBALIZED UNDERSTANDING AND AGREEABLE WITH CURRENT PLAN OF CARE ADVISED TO RETURN TO ER IMMEDIATELY IF SYMPTOMS WORSEN Time of 1ST Reevaluation: 18:24 Reevaluation 1ST: N/A Patient Education/Counseling: Diagnosis, Treatment, Prognosis, Need For Follow Up Family Education/Counseling: No Family Present Departure 1 Departure Time of Disposition: 18:52 Impression: Primary Impression: Upper respiratory infection Qualified Codes: J06.9 - Acute upper respiratory infection, unspecified Disposition: HOME / SELF CARE / HOMELESS Condition: Stable e-Prescriptions Acetaminophen (Acetaminophen) 500 Mg Tab 500 MG PO Q4HPRN, #30 TAB 0 Refills Prov: RASHAAD GERMAIN 01/06/24 Prednisone (Prednisone) 10 Mg Tab 10 MG PO BID for 5 Days, #10 TAB 0 Refills Prov: RASHAAD GERMAIN 01/06/24 Amoxicillin & Pot Clavulanate (Amoxicillin/Potassium Cla) 500 Mg Tab 1 TAB PO BID for 7 Days, #14 TAB 0 Refills Prov: RASHAAD GERMAIN 01/06/24 Discharged With: Self Critical Care Note Critical Care Time?: No Stability Stability form required: No Heart Score Heart Score: Heart Score Response (Comments) Value History N/A 0 EKG N/A 0 Age N/A 0 Risk Factors N/A 0 Troponin N/A 0 Total 0 RASHAAD GERMAIN Jan 06, 2024 18:58
[2024-01-06 20:37] LABS: COVID19 ANTIGEN SOFIA FIA NEGATIVE (NEGATIVE); Rapid Influenza A Negative (Negative); Rapid Influenza B Negative (Negative)
== END 2024-01-06 20:49 | disposition home or self-care (01) ==
LOC: ER 17:20
DX: J06.9 Acute upper respiratory infection, unspecified (principal); R19.7 Diarrhea, unspecified; I10 Essential (primary) hypertension; E11.9 Type 2 diabetes mellitus without complications; F20.9 Schizophrenia, unspecified; F41.9 Anxiety disorder, unspecified; F32.9 Major depressive disorder, single episode, unspecified; F17.210 Nicotine dependence, cigarettes, uncomplicated; Z98.890 Other specified postprocedural states; Z20.822 Contact with and (suspected) exposure to COVID-19
CPT/HCPCS: 36415; 87426; 87804

== ENCOUNTER 2024-01-10 11:56 | Emergency (ER) | payer MEDICAID ==
[~2024-01-10] VITALS: Ht 157.5 cm; Wt 130.8 kg
[~2024-01-10 11:56] MED LIST changes: +ACET500T58 PO; +AMOX500T92 PO; +PRED10TA PO
--- NOTE | 2024-01-10 12:37 | ED.PDOC ---
GI ASSESSMENT HPI Comments 38Y F with PMHx DM, HTN, breast CA s/p mastectomy, and presents to ED for chief complaint rectal bleeding. Additional symptoms include abd pain, rt flank pain, and constipation. Normal exam. Pt smokes cigarettes. Pt denies alcohol and illicit drug use. Allergies include diphenhydramine and gabapentin. Chief Complaint: Rectal Pain Time Seen by MD: 12:23 Primary Care Provider: UNKNOWN Reviewed Notes: Medications, Allergies Allergies: Coded Allergies: Gabapentin (Verified Allergy, Severe, 09/15/17) Diphenhydramine (Verified Allergy, Unknown, 05/31/21) Home Meds Active Scripts Acetaminophen (Acetaminophen) 500 Mg Tab, 500 MG PO Q4HPRN, #30 TAB 0 Refills Prov:RASHAAD GERMAIN 01/06/24 Prednisone (Prednisone) 10 Mg Tab, 10 MG PO BID for 5 Days, #10 TAB 0 Refills Prov:RASHAAD GERMAIN 01/06/24 Amoxicillin & Pot Clavulanate (Amoxicillin/Potassium Cla) 500 Mg Tab, 1 TAB PO BID for 7 Days, #14 TAB 0 Refills Prov:RASHAAD GERMAIN 01/06/24 Reported Medications Hydroxyzine Pamoate (Hydroxyzine Pamoate) 50 Mg Cap, 50 MG PO DAILY, #30 08/10/16 Topiramate (Topiramate) 100 Mg Tab, 100 MG PO DAILY, #30 08/10/16 Canagliflozin (INVOKANA) 100 Mg Tab, 100 MG PO DAILY, #30 08/10/16 Metformin Hydrochloride (Metformin Hcl) 500 Mg Tab, 500 MG PO BID, #60 08/10/16 Alprazolam (Alprazolam) 1 Mg Tab, 1 MG PO BID, #60 08/10/16 Fluoxetine HCl (Fluoxetine HCl) 20 Mg Cap, 20 MG PO DAILY, #30 08/10/16 Amlodipine Besylate (Amlodipine Besylate) 10 Mg Tab, 10 MG PO DAILY, #30 08/10/16 Information Source: Patient Mode of Arrival: Ambulatory Timing: Days Duration: Intermittent Quality: Sharp Vomitus: None Stool: Other Severity: Mild Recent: None Recent Hx of: None Pain Location: Diffuse Modifying Factors: Nothing Associated sign and symptoms: Constipation, Abdominal Pain, Other Past Medical History PAST MEDICAL HISTORY: Anxiety, Cancer, Depression, DM, HTN, Schizophrenia Surgical History: Surgical History (Other): Mastectomy [employer]IEF [employer]ATION OFFICER History: No Pertinent [employer]IEF [employer]ATION OFFICER History Family History Family History: Family hx of DM, Family hx of Cancer, Family hx of heart rohan Social History Smoker: Cigarettes, Less Than 1 Pack/Day Alcohol: Denies ETOH Use Drugs: Denies Drug Use Lives In: Home Constitutional: denies: chills, diaphoresis, fatigue, fever, malaise, sweats, weakness, others EENTM: denies: blurred vision, double vision, ear bleeding, ear discharge, ear drainage, ear pain, ear ringing, eye pain, eye redness, hearing loss, mouth pain, mouth swelling, nasal discharge, nose bleeding, nose congestion, nose pain, photophobia, tearing, throat pain, throat swelling, voice changes, others Respiratory: denies: cough, hemoptysis, orthopnea, SOB at rest, shortness of breath, SOB with excertion, stridor, wheezing, others Cardiovascular: denies: chest pain, dizzy spells, diaphoresis, Dyspnea on exertion, edema, irregular heart beat, left arm pain, lightheadedness, palpitations, PND, syncope, others Gastrointestinal: reports: abdominal pain, constipated, rectal bleeding; denies: abdomen distended, blood streaked bowels, diarrhea, dysphagia, difficulty swallowing, hematemesis, melena, nausea, poor appetite, poor fluid intake, rectal pain, vomiting, others Genitourinary: reports: flank pain; denies: abnormal vagina bleeding, burning, dyspareunia, dysuria, frequency, hematuria, incontinence, pain, , vagina discharge, urgency, others Neurological: denies: dizziness, fainting, headache, left sided numbness, left sided weakness, numbness, paresthesia, pre-existing deficit, right sided numbness, right sided weakness, seizure, speech problems, tingling, tremors, weakness, others Musculoskeletal: denies: back pain, gout, joint pain, joint swelling, muscle pain, muscle stiffness, neck pain, others Integumetry: denies: bruises, change in color, change in hair/nails, dryness, laceration, lesions, lumps, rash, wounds, others Allergic/Immunocompromised: denies: Difficulty Healing, Frequent Infections, Hives, Itching, others Hematologic/Lymphatic: denies: anemia, blood clots, easy bleeding, easy b ruising, swollen glands, others Endocrine: denies: excessive hunger, excessive sweating, excessive thirst, excessive urination, flushing, intolerance to cold, intolerance to heat, unexplained weight gain, unexplained weight loss, others Psychiatric: denies: anxiety, bipolar disorder, depression, hopeless, panic disorder, schizophrenia, sleepless, suicidal, others All Other Systems: Reviewed and Negative Physical Exam General Appearance: No Apparent Distress, Normal HEENT: Normal ENT Inspection, Pharynx Normal, TMs Normal Neck: Full Range of Motion, Non-Tender, Normal, Normal Inspection Respiratory: Chest Non-Tender, Lungs Clear, No Accessory Muscle Use, No Respiratory Distress, Normal Breath Sounds Cardiovascular: No Edema, No JVD, No Murmur, No Gallop, Normal Peripheral Pulses, Regular Rate/Rhythm Breast Exam: Deferred Gastrointestinal: No Organomegaly, Non Tender, No Pulsatile Mass, Normal Bowel Sounds, Soft Genitalia: Deferred Pelvic: Deferred Rectal: Deferred Extremities: No calf tenderness, Normal capillary refill, Normal inspection, Normal range of motion, Non-tender, No pedal edema Musculoskeletal : Apperance: Normal Neurologic: Alert, manager port II-XII nml as Tested, No Motor Deficits, Normal Affect, Normal Mood, No Sensory Deficits Cerebellar Function: Normal Reflexes: Normal Skin: Dry, Normal Color, Warm Lymphatic: No Adenopathy Was a procedure done? Was a procedure done?: No GI differential Dx Differential Diagnosis: Appendicitis, Complete , Incomplete , Inevitable , Missed , Threatened , Abruptio placentae, Bowel Obstruction, Cholangitis, Cholecystitis, Constipation, Diverticular disease, Dysmenorrhea, Ectopic , Gastritis/PUD, Gastroenteritis, GI hemorrhage, Hernia, Hepatitis, Inflammatory BD, Ischemic Bowel, Ovarian cyst/torsion, Pancreatitis, Urinary Obstruction, UTI, Urolithiasis, Dehydration, Diabetes/ DKA, Electrolyte Imbalance, Food Poisoning, , Bacterial, Parasitic, Viral, Impaction, Mass, Stress Ulcer, Kidney Stone X-Ray, Labs, Meds, VS Vital Signs Date Time Temp Pulse Resp B/P (MAP) Pulse Ox O2 Delivery O2 Flow Rate FiO2 01/10/24 15:16 154/110 01/10/24 15:16 88 18 154/110 (125) 97 01/10/24 13:47 166/99 01/10/24 13:44 87 17 01/10/24 13:44 87 17 166/99 (121) 98 01/10/24 12:36 97.3 95 19 214/143 (166) 97 Lab Test 01/10/24 15:43 01/10/24 13:17 Range/Units Urine Color Yellow Yellow Urine Clarity Clear Clear Urine pH 6.0 5.0-9.0 Urine Specific [place] 1.019 1.001-1.035 Urine Protein Trace H Negative Urine Ketones Negative Negative Urine Blood Negative Negative /uL Urine Nitrite Negative Negative Urine Bilirubin Negative Negative Urine Urobilinogen Normal Negative mg/dL Urine Leukocyte Esterase Negative Negative /uL Urine RBC 1 0 - 4 /hpf Urine WBC 1 0 - 5 /hpf Urine Squamous Epithelial Cells Few <5 /hpf Urine Bacteria None seen None Seen /hpf Urine Mucus Few None Seen Urine Glucose 3+ H Normal mg/dL White Blood Count 9.5 4.4-10.8 10^3/uL Red Blood Count 4.52 4.0-5.20 10^6/uL Hemoglobin 13.8 12.2-16.2 g/dL Hematocrit 40.3 36.0-46.0 % Mean Corpuscular Volume 89.3 80.0-100.0 fL Mean Corpuscular Hemoglobin 30.6 28.0-32.0 pg Mean Corpuscular Hemoglobin Concent 34.3 32.0-36.0 g/dL Red Cell Distribution Width 13.8 11.8-14.3 % Platelet Count 310 140-450 10^3/uL Mean Platelet Volume 8.1 6.9-10.8 fL Neutrophils (%) (Auto) 61.8 37.0-80.0 % Lymphocytes (%) (Auto) 22.9 10.0-50.0 % Monocytes (%) (Auto) 9.4 0.0-12.0 % Eosinophils (%) (Auto) 4.4 0.0-7.0 % Basophils (%) (Auto) 1.5 0.0-2.0 % Neutrophils # (Auto) 5.9 1.6-8.6 10 ^3/uL Lymphocytes # (Auto) 2.2 0.4-5.4 10 ^3/uL Monocytes # (Auto) 0.9 0-1.3 10 ^3/uL Eosinophils # (Auto) 0.4 0-0.8 10 ^3/uL Basophils # (Auto) 0.1 0-0.2 10 ^3/uL Nucleated Red Blood Cells 0.0 % Sodium Level 137 136-145 mmol/L Potassium Level 4.0 3.5-5.1 mmol/L Chloride Level 104 98-107 mmol/L Carbon Dioxide Level 27 20-31 mmol/L Anion Gap 6 5-15 Blood Urea Nitrogen 9 9-23 mg/dL Creatinine 0.81 0.550-1.02 mg/dL Glomerular Filtration Rate Calc 95 >90 mL/min BUN/Creatinine Ratio 11.1 10.0-20.0 Serum Glucose 178 H 74-106 mg/dL Calcium Level 9.9 8.7-10.4 mg/dL Lipase 42 12-53 U/L Current Medications Medications (Trade) Dose Ordered Sig/Ashlie Route Start Time Stop Time Status Last Admin Clonidine HCl (Catapres Tablet) 0.1 mg ONCE ONCE PO 01/10/24 12:45 01/10/24 12:46 DC 01/10/24 13:47 [place] [address] Ph: [phone] DIAGNOSTIC IMAGING Diagnostic Imaging Report : [id number] Signed PATIENT: LUKASZ BLOCK ACCT: [id number] UNIT: [id number] : 1985 LOC: ER ROOM / BED: / AGE / SEX: 38 / F ADM STATUS: REG ER SERVICE 1233 ORDERING PHYSICIAN: GABRIELLA MACIAS MD PROCEDURE(s): ABPL - CT AB PEL WO CON-NO ORAL OR IV REASON: pain ORDER NUMBER(s): [id number], ACCESSION NUMBER(s): [id number] EXAM: CT Abdomen and Pelvis Without Intravenous Contrast CLINICAL INDICATION: pain TECHNIQUE: Axial computed tomography images of the abdomen and pelvis without intravenous contrast. This CT exam was performed using one or more of the following dose reduction techniques: automated exposure control, adjustment of the mA and/or kV according to patient size, and/or use of iterative reconstruction technique. RADIATION DOSE: CTDlvol= 28 mGy, DLP= 1449.16 mGy-cm COMPARISON: None FINDINGS: LUNG BASES: Unremarkable. No mass. No consolidation. ABDOMEN: LIVER: Fatty infiltration of the liver. GALLBLADDER AND BILE DUCTS: Unremarkable. No calcified stones. No ductal dilation. PANCREAS: Unremarkable. No ductal dilation. SPLEEN: Unremarkable. No splenomegaly. ADRENALS: Unremarkable. No mass. KIDNEYS AND URETERS: Unremarkable. No stones within either kidney. No hydronephrosis. STOMACH AND BOWEL: Unremarkable. No obstruction. No mucosal thickening. PELVIS: APPENDIX: Normal appendix. BLADDER: Unremarkable. No stones. REPRODUCTIVE: Unremarkable as visualized. ABDOMEN and PELVIS: INTRAPERITONEAL SPACE: Unremarkable. No free air. No significant fluid collection. BONES/JOINTS: No acute fracture. No dislocation. SOFT TISSUES: Umbilical hernia containing fat. VASCULATURE: Unremarkable. No abdominal aortic aneurysm. LYMPH NODES: Unremarkable. No enlarged lymph nodes. OTHER FINDINGS: . . . IMPRESSION: 1. Normal appendix. 2. Umbilical hernia containing fat. 3. No obstructive uropathy. HS:Y ATED BY: LENNOX GIBBS MD DICTATED DATE/TIME: 01/10/241306 SIGNED BY: LENNOX GIBBS MD SIGNED DATE/TIME: 01/10/241306 CC: Time of 1ST Reevaluation: 12:53 Reevaluation 1ST: Unchanged Time of 2ND Reevaluation: 16:46 Reevaluation 2ND: Improved Patient Education/Counseling: Diagnosis, Treatment Family Education/Counseling: No Family Present Additional Information Tests ordered and results reviewed: CBC, CMP, UA, CT abd/pelvis WO contrast. Independent historians include: None. Dr. Macias interpreted each of the tests and agrees with the result. Results and treatment discussed with the pt and medical personnel. Departure 1 Departure Time of Disposition: 16:46 Impression: Primary Impression: Abdominal pain Qualified Codes: R10.84 - Generalized abdominal pain Additional Impression: Hernia, umbilical Qualified Codes: K42.9 - Umbilical hernia without obstruction or gangrene Disposition: 01 HOME / SELF CARE / HOMELESS Condition: Good Discharged With: Self Critical Care Note Critical Care Time?: No Stability Stability form required: No I personally scribed for GABRIELLA MACIAS MD ([facility]) on 01/10/24 at 12:37. Electronically submitted by Kourtney Becerra ([facility]). I personally scribed for GABRIELLA MACIAS MD ([facility]) on 01/10/24 at 13:07. Electronically submitted by Kourtney Becerra ([facility]). I personally scribed for [facility]ABRIELLA [facility]IAS MD ([facility] on 01/10/24 at 13:12. [place] ctronically submitted by [facility]ney Bec[facility] ([facility] GABRIELLA MACIAS MD Jan 10, 2024 12:37
--- NOTE | 2024-01-10 13:09 | DVH ---
EXAM: CT Abdomen and Pelvis Without Intravenous Contrast CLINICAL INDICATION: pain TECHNIQUE: Axial computed tomography images of the abdomen and pelvis without intravenous contrast. This CT exam was performed using one or more of the following dose reduction techniques: automated exposure control, adjustment of the mA and/or kV according to patient size, and/or use of iterative r econstruction technique. RADIATION DOSE: CTDlvol= 28 mGy, DLP= 1449.16 mGy-cm COMPARISON: None FINDINGS: LUNG BASES: Unremarkable. No mass. No consolidation. ABDOMEN: LIVER: Fatty infiltration of the liver. GALLBLADDER AND BILE DUCTS: Unremarkable. No calcified stones. No ductal dilation. PANCREAS: Unremarkable. No ductal dilation. SPLEEN: Unremarkable. No splenomegaly. ADRENALS: Unremarkable. No mass. KIDNEYS AND URETERS: Unremarkable. No stones within either kidney. No hydronephrosis. STOMACH AND BOWEL: Unremarkable. No obstruction. No mucosal thickening. PELVIS: APPENDIX: Normal appendix. BLADDER: Unremarkable. No stones. REPRODUCTIVE: Unremarkable as visualized. ABDOMEN and PELVIS: INTRAPERITONEAL SPACE: Unremarkable. No free air. No significant fluid collection. BONES/JOINTS: No acute fracture. No dislocation. SOFT TISSUES: Umbilical hernia containing fat. VASCULATURE: Unremarkable. No abdominal aortic aneurysm. LYMPH NODES: Unremarkable. No enlarged lymph nodes. OTHER FINDINGS: . . . IMPRESSION: 1. Normal appendix. 2. Umbilical hernia containing fat. 3. No obstructive uropathy. HS:Y
[2024-01-10 13:37] LABS: Basophils # (auto) 0.1 10 ^3/uL (0-0.2); Basophils % (auto) 1.5 % (0.0-2.0); Eosinophils # (auto) 0.4 10 ^3/uL (0-0.8); Eosinophils % (auto) 4.4 % (0.0-7.0); Hematocrit 40.3 % (36.0-46.0); Hemoglobin 13.8 g/dL (12.2-16.2); Lymphocytes # (auto) 2.2 10 ^3/uL (0.4-5.4); Lymphocytes % (auto) 22.9 % (10.0-50.0); Mean Corpuscular Hemoglobin 30.6 pg (28.0-32.0); Mean Corpuscular Hgb Conc. 34.3 g/dL (32.0-36.0); Mean Corpuscular Volume 89.3 fL (80.0-100.0); Monocytes # (auto) 0.9 10 ^3/uL (0-1.3); Monocytes % (auto) 9.4 % (0.0-12.0); Neutrophils # (auto) 5.9 10 ^3/uL (1.6-8.6); Neutrophils % (auto) 61.8 % (37.0-80.0); Platelet Count (auto) 310 10^3/uL (140-450); Red Blood Cells 4.52 10^6/uL (4.0-5.20); Red Cell Distribution Width 13.8 % (11.8-14.3); White Blood Cell 9.5 10^3/uL (4.4-10.8)
[2024-01-10 13:42] LABS: Anion Gap 6 (5-15); Carbon Dioxide 27 mmol/L (20-31); Chloride 104 mmol/L (98-107); Sodium 137 mmol/L (136-145)
[2024-01-10 13:43] LABS: Calcium 9.9 mg/dL (8.7-10.4)
[2024-01-10] MEDS: cloNIDine HCL 0.1 MG TAB PO ONE (13:47)
[2024-01-10 13:48] LABS: BUN/Creatinine Ratio 11.1 (10.0-20.0); Blood Urea Nitrogen 9 mg/dL (9-23); Glucose 178 mg/dL (74-106); Lipase 42 U/L (12-53)
[2024-01-10 15:16] VITALS: BP 154/110; PULSE 88; RESP 18; O2SAT 97
[2024-01-10 16:22] LABS: Urine Bacteria None Seen /hpf (None Seen)
[2024-01-10 16:32] LABS: Urine Blood Negative /uL (Negative); Urine Clarity Clear (Clear); Urine Color Yellow (Yellow); Urine Mucus FEW (None Seen); Urine Protein, UAD TRACE (Negative); Urine Specific Gravity 1.019 (1.001-1.035); Urine Urobilinogen Normal (Negative); Urine WBC 1 /hpf (0 - 5)
== END 2024-01-10 16:56 | disposition home or self-care (01) ==
LOC: ER 11:56
DX: K42.9 Umbilical hernia without obstruction or gangrene (principal); R10.84 Generalized abdominal pain; E11.9 Type 2 diabetes mellitus without complications; I10 Essential (primary) hypertension; F17.210 Nicotine dependence, cigarettes, uncomplicated; Z98.890 Other specified postprocedural states; Z79.899 Other long term (current) drug therapy; Z88.8 Allergy status to other drugs, medicaments and biological substances
CPT/HCPCS: 36415; 74176; 80048; 81001; 83690; 85025

== ENCOUNTER 2024-04-13 12:14 | Emergency (ER) | payer MEDICAID ==
[~2024-04-13] VITALS: Ht 152.4 cm; Wt 120.0 kg
[2024-04-13 12:14] VITALS: BP 216/124; PULSE 84; RESP 16; O2SAT 98
== END 2024-04-13 17:14 | disposition left against medical advice (07) ==
LOC: EDBD 12:14 → ER 12:14
DX: I10 Essential (primary) hypertension (principal); Z53.21 Procedure and treatment not carried out due to patient leaving prior to being seen by health care provider

== ENCOUNTER 2024-05-14 11:43 | Emergency (ER) | payer MEDICAID | END 2024-05-14 11:52 | disposition left against medical advice (07) | LOC: EDBD 11:43 → ER 11:51 | DX: R05.9 Cough, unspecified (principal); Z53.21 Procedure and treatment not carried out due to patient leaving prior to being seen by health care provider ==

== ENCOUNTER 2024-05-14 12:57 | Emergency (ER) | payer MEDICAID ==
[~2024-05-14] VITALS: Ht 157.5 cm; Wt 129.1 kg
[2024-05-14 14:27] VITALS: BP 177/108; PULSE 104; RESP 22; TEMP 99.1; O2SAT 100
[2024-05-14] MEDS ORDERED: cefTRIAXone SOD 1,000 MG VL IM ONE (14:30)
[2024-05-14] MEDS ORDERED: methylPREDNISolone SOD SUCC 125 MG/2 ML VL IM ONE (14:30)
--- NOTE | 2024-05-14 14:34 | ED.PDOC ---
Eye-HPI HPI Comments A 38 YEAR OLD FEMALE PRESENTS TO THE ED WITH COMPLAINT OF SORE THROAT. PATIENT STATES HE HAS BEEN EXPERIENCING A SORE THROAT, VOICE CHANGES, AND BODY ACHES FOR THE PAST 3 DAYS. PATIENT DENIES FEVER, CHILLS, SHORTNESS OF BREATH, CHEST PAIN, ABDOMINAL PAIN, NAUSEA, VOMITING, HEADACHE, OR OTHER COMPLAINTS. NO OTHER SYMPTOMS OR MODIFYING FACTORS AT THIS TIME. PATIENT IS ALERT, ORIENTED X 4, AND HAS STEADY GAIT. Chief Complaint: Sore Throat Primary Care Provider: UNKNOWN Reviewed Notes: Nurses Notes, Medications, Allergies Allergies: Coded Allergies: Gabapentin (Verified Allergy, Severe, 09/15/17) Diphenhydramine (Verified Allergy, Unknown, 05/31/21) Home Meds Active Scripts Acetaminophen (Acetaminophen) 500 Mg Tab, 500 MG PO Q4HPRN, #30 TAB 0 Refills Prov:RASHAAD GERMAIN 01/06/24 Prednisone (Prednisone) 10 Mg Tab, 10 MG PO BID for 5 Days, #10 TAB 0 Refills Prov:RASHAAD GERMAIN 01/06/24 Amoxicillin & Pot Clavulanate (Amoxicillin/Potassium Cla) 500 Mg Tab, 1 TAB PO BID for 7 Days, #14 TAB 0 Refills Prov:RASHAAD GERMAIN 01/06/24 Reported Medications Hydroxyzine Pamoate (Hydroxyzine Pamoate) 50 Mg Cap, 50 MG PO DAILY, #30 08/10/16 Topiramate (Topiramate) 100 Mg Tab, 100 MG PO DAILY, #30 08/10/16 Canagliflozin (INVOKANA) 100 Mg Tab, 100 MG PO DAILY, #30 08/10/16 Metformin Hydrochloride (Metformin Hcl) 500 Mg Tab, 500 MG PO BID, #60 08/10/16 Alprazolam (Alprazolam) 1 Mg Tab, 1 MG PO BID, #60 08/10/16 Fluoxetine HCl (Fluoxetine HCl) 20 Mg Cap, 20 MG PO DAILY, #30 08/10/16 Amlodipine Besylate (Amlodipine Besylate) 10 Mg Tab, 10 MG PO DAILY, #30 08/10/16 Information Source: Patient Mode of Arrival: Ambulatory Timing: Days Duration: Since onset, Days Prehospital treatment: None Quality: Pain, Red Lids: Normal Conjunctiva: Normal Cornea: Normal Pupils: Normal EOM: Normal Fundus: Normal Slit lamp exam: Normal Anterior chamber: Normal Mouth Location: Pharynx Mouth: Normal ENT Ear Exam: Normal, Normal, Normal Nose: Normal Sinuses: Normal Oropharynx: Tonsillar hypertrophy, Red Onset: Spontaneous Throat Exposed to: None History of: None Last Tetanus: Unknown Associated signs and symptoms: Nasal Symptoms, Sore Throat Past Medical History PAST MEDICAL HISTORY: Anxiety, Cancer, Depression, DM, HTN, Schizophrenia 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 History Family History Family History: Reviewed,noncontributory to illness, Family hx of DM, Family hx of Cancer, Family hx of heart rohan Social History Smoker: Cigarettes, Less Than 1 Pack/Day Alcohol: Denies ETOH Use Drugs: Denies Drug Use Lives In: Home Constitutional: denies: chills, diaphoresis, fatigue, fever, malaise, sweats, weakness, others EENTM: reports: nose congestion, throat pain, throat swelling; denies: blurred vision, double vision, ear bleeding, ear discharge, ear drainage, ear pain, ear ringing, eye pain, eye redness, hearing loss, mouth pain, mouth swelling, nasal discharge, nose bleeding, nose pain, photophobia, tearing, voice changes, others Respiratory: denies: cough, hemoptysis, orthopnea, SOB at rest, shortness of breath, SOB with excertion, stridor, wheezing, others Cardiovascular: denies: chest pain, dizzy spells, diaphoresis, Dyspnea on exertion, edema, irregular heart beat, left arm pain, lightheadedness, palpitations, PND, syncope, others Gastrointestinal: denies: abdomen distended, abdominal pain, blood streaked bowels, constipated, diarrhea, dysphagia, difficulty swallowing, hematemesis, melena, nausea, poor appetite, poor fluid intake, rectal bleeding, rectal pain, vomiting, others Genitourinary: denies: abnormal vagina bleeding, burning, dyspareunia, dysuria, flank pain, frequency, hematuria, incontinence, pain, , vagina discharge, urgency, others Neurological: denies: dizziness, fainting, headache, left sided numbness, left sided weakness, numbness, paresthesia, pre-existing deficit, right sided numbness, right sided weakness, seizure, speech problems, tingling, tremors, weakness, others Musculoskeletal: reports: muscle pain; denies: back pain, gout, joint pain, joint swelling, muscle stiffness, neck pain, others Integumetry: denies: bruises, change in color, change in hair/nails, dryness, laceration, lesions, lumps, rash, wounds, others Allergic/Immunocompromised: denies: Difficulty Healing, Frequent Infections, Hives, Itching, others Hematologic/Lymphatic: denies: anemia, blood clots, easy bleeding, easy bruising, swollen glands, others Endocrine: denies: excessive hunger, excessive sweating, excessive thirst, excessive urination, flushing, intolerance to cold, intolerance to heat, unexplained weight gain, unexplained weight loss, others Psychiatric: denies: anxiety, bipolar disorder, depression, hopeless, panic disorder, schizophrenia, sleepless, suicidal, others All Other Systems: Reviewed and Negative Was a procedure done? Was a procedure done?: No EENT DIFF Eye: N/A Ear: Otitis Media, Pharyngitis, Sinusitis Nose: N/A Mouth: N/A Sore Throat: Pharyngitis, Streptococcal, Viral Pharyngitis, URI X-Ray, Labs, Meds, VS Vital Signs Date Time Temp Pulse Resp B/P (MAP) Pulse Ox O2 Delivery O2 Flow Rate FiO2 05/14/24 14:27 104 22 100 Room Air 05/14/24 14:27 99.1 104 22 177/108 (131) 100 99.1 05/14/24 13:32 99.1 104 22 177/108 (131) 100 99.1 X-Ray, Labs, Meds, VS Comment EXTERNAL MEDICAL RECORDS REVIEWED: [NONE] INDEPENDENT HISTORIANS: [NONE] SOCIAL DETERMINANTS OF HEALTH: [NONE] LABS ORDERED: NONE REVIEWED AND INTERPRETED RESULTS: NONE IMAGING ORDERED: XR CHEST, PATIENT REFUSED TO HAVE CHEST X-RAY DONE. TREATMENTS ORDERED: ROCEPHIN 1 G IM, SOLU-MEDROL 125 MG IM PROCEDURES PERFORMED: NONE CRITICAL CARE TIME: NONE I HAVE DISCUSSED THE PATIENT WITH THE ATTENDING PHYSICIAN DR. PAUL AND HE AGREES WITH THE PATIENT'S PLAN OF CARE AND DISPOSITION. BASED ON HISTORY OF PRESENT ILLNESS, AND PHYSICAL EXAM, PATIENT WILL BE DISCHARGED HOME. DISCUSSED PLAN FOR DISCHARGE HOME WITH RX [AZITHROMYCIN]. M EDICATION WARNINGS GIVEN. SHARED DECISION MAKING: PATIENT INSTRUCTED TO FOLLOW UP WITH PRIMARY CARE PROVIDER IN 1-2 DAYS FOR RE-EVALUATION OF SYMPTOMS. PATIENT VERBALIZES UNDERSTANDING TO RETURN TO ED FOR NEW OR WORSENING SYMPTOMS OR IF FOLLOW UP WITH PCP CANNOT BE OBTAINED. PATIENT FEELS COMFORTABLE GOING HOME AT THIS TIME. ALL QUESTIONS ADDRESSED AT TIME OF DISCHARGE. Reevaluation 1ST: Improved Patient Education/Counseling: Diagnosis, Treatment, Need For Follow Up Family Education/Counseling: Diagnosis, Treatment, Need For Follow Up Departure 1 Departure Impression: Primary Impression: Acute tonsillitis Qualified Codes: J03.90 - Acute tonsillitis, unspecified Disposition: HOME / SELF CARE / HOMELESS Condition: Stable Additional Instructions: FOLLOW-UP WITH PCP IN 1 TO 2 DAYS. TAKE MEDICATIONS PRESCRIBED. RETURN TO ED FOR ANY NEW OR WORSENING SYMPTOMS. Discharged With: Self Critical Care Note Critical Care Time?: No Stability Stability form required: No I personally scribed for JONATHAN ODOM ([email or web address]) on 05/14/24 at 14:34. Electronically submitted by Jesús Squires ([email or web address]). I personally scribed for JONATHAN ODOM ([email or web address]) on 05/14/24 at 14:42. Electronically submitted by Jesús Squires ([email or web address]). JONATHAN ODOM May 14, 2024 14:34
== END 2024-05-14 15:04 | disposition home or self-care (01) ==
LOC: ER 13:01
DX: R11.2 Nausea with vomiting, unspecified (principal); R05.9 Cough, unspecified; R09.81 Nasal congestion; Z53.21 Procedure and treatment not carried out due to patient leaving prior to being seen by health care provider
CPT/HCPCS: J0696

== ENCOUNTER 2024-10-10 18:11 | Inpatient (IN) | payer MEDICAID ==
[~2024-10-10] VITALS: Ht 160 cm; Wt 132.8 kg
[2024-10-10 18:18] VITALS: PULSE 94; RESP 15; TEMP 98.2; O2SAT 98
[2024-10-10 18:19] VITALS: BP 242/136
[2024-10-10] MEDS ORDERED: LABETALOL HCL 20 MG/4 ML VL IV ONE (19:00)
[2024-10-10] MEDS ORDERED: LABETALOL INJECTION 250 MG in SODIUM CHL 0.9% 200 ML IV ONE (19:00)
--- NOTE | 2024-10-10 19:00 | ED.PDOC ---
History of Present Illness HPI Comments 39 y/o morbidly obese F presents with c/c left flank pain. Patient is a poor historian. She endorses on ongoing pain, intermittently, for the past several years, which starts from the left side of her back and wraps around and radiates to her groin. Significant history of breast cancer s/p mastectomy, DM, HTN, umbilical hernia, , and tobacco cigarette use. Patient reports on not seeing her PCP for awhile since last consultation regarding an umbilical hernia she has that is inoperable, due to size and patient's current weight disqualifying her from surgery. Patient denies having any nausea, vomiting, diarrhea, constipation, urinary symptoms, fever, chills, or further associated symptoms. Chief Complaint: Abdominal Pain Time Seen by MD: 18:30 Primary Care Provider: UNKNOWN Reviewed Notes: Nurses Notes, Medications, Allergies Allergies: Coded Allergies: Gabapentin (Verified Allergy, Severe, 09/15/17) Diphenhydramine (Verified Allergy, Unknown, 05/31/21) Home Meds Active Scripts Acetaminophen (Acetaminophen) 500 Mg Tab, 500 MG PO Q4HPRN, #30 TAB 0 Refills Prov:RASHAAD GERMAIN 01/06/24 Prednisone (Prednisone) 10 Mg Tab, 10 MG PO BID for 5 Days, #10 TAB 0 Refills Prov:RASHAAD GERMAIN 01/06/24 Amoxicillin & Pot Clavulanate (Amoxicillin/Potassium Cla) 500 Mg Tab, 1 TAB PO BID for 7 Days, #14 TAB 0 Refills Prov:RASHAAD GERMAIN 01/06/24 Reported Medications Hydroxyzine Pamoate (Hydroxyzine Pamoate) 50 Mg Cap, 50 MG PO DAILY, #30 08/10/16 Topiramate (Topiramate) 100 Mg Tab, 100 MG PO DAILY, #30 08/10/16 Canagliflozin (INVOKANA) 100 Mg Tab, 100 MG PO DAILY, #30 08/10/16 Metformin Hydrochloride (Metformin Hcl) 500 Mg Tab, 500 MG PO BID, #60 08/10/16 Alprazolam (Alprazolam) 1 Mg Tab, 1 MG PO BID, #60 08/10/16 Fluoxetine HCl (Fluoxetine HCl) 20 Mg Cap, 20 MG PO DAILY, #30 08/10/16 Amlodipine Besylate (Amlodipine Besylate) 10 Mg Tab, 10 MG PO DAILY, #30 08/10/16 Mode of Arrival: Ambulatory Severity: Moderate Timing: Months Duration: Intermittent Prehospital treatment: None Past Medical History PAST MEDICAL HISTORY: Anxiety, Cancer (breast ), Depression, DM, HTN, Schizophrenia Past Medical History (Other): Umbilical hernia Morbid obesity Surgical History: Surgical History (Other): Mastectomy 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 CHAIR History: No Pertinent 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 CHAIR History Family History Family History: Reviewed,noncontributory to illness, Family hx of DM, Family hx of Cancer, Family hx of heart rohan Social History Smoker: Cigarettes, Less Than 1 Pack/Day Alcohol: Denies ETOH Use Drugs: Denies Drug Use Lives In: Home All Other Systems: Reviewed and Negative (Comprehensive review of systems are negative unless otherwise stated in HPI) Physical Exam General Appearance: No Apparent Distress, Obese HEENT: Normal ENT Inspection, Pharynx Normal, TMs Normal Neck: Full Range of Motion, Non-Tender, Normal, Normal Inspection Respiratory: Chest Non-Tender, Lungs Clear, No Accessory Muscle Use, No Respiratory Distress, Normal Breath Sounds Cardiovascular: No Edema, No JVD, No Murmur, No Gallop, Normal Peripheral Pulses, Regular Rate/Rhythm Breast Exam: Deferred Gastrointestinal: No Organomegaly, Non Tender, No Pulsatile Mass, Normal Bowel Sounds, Soft, Other (Obese abdomen ) Genitalia: Deferred Pelvic: Deferred Rectal: Deferred Extremities: No calf tenderness, Normal capillary refill, Normal inspection, Normal range of motion, Non-tender, No pedal edema Musculoskeletal : Apperance: Normal Neurologic: Alert, radio communication coordinator II-XII nml as Tested, No Motor Deficits, Normal Affect, Normal Mood, No Sensory Deficits Cerebellar Function: Normal Reflexes: Normal Skin: Dry, Normal Color, Warm Lymphatic: No Adenopathy Was a procedure done? Was a procedure done?: No Differential Dx Considerations may include: musculoskeletal pain, nephrolithiasis, pyelonephritis, cystitis, PID, ovarian cysts, ovarian torsion, diverticulitis, among others, poorly controlled htn, htn urgency, htn emergency X-Ray, Labs, Meds, VS Vital Signs Date Time Temp Pulse Resp B/P (MAP) Pulse Ox O2 Delivery O2 Flow Rate FiO2 10/10/24 18:19 242/136 (171) 10/10/24 18:18 98.2 94 15 218/129 (158) 98 98.2 10/10/24 18:12 98.2 94 15 218/129 96 98.2 Lab Test 10/10/24 18:46 10/10/24 00:00 Range/Units White Blood Count 8.1 4.4-10.8 10^3/uL Red Blood Count 4.53 4.0-5.20 10^6/uL Hemoglobin 13.8 12.2-16.2 g/dL Hematocrit 40.0 36.0-46.0 % Mean Corpuscular Volume 88.3 80.0-100.0 fL Mean Corpuscular Hemoglobin 30.5 28.0-32.0 pg Mean Corpuscular Hemoglobin Concent 34.6 32.0-36.0 g/dL Red Cell Distribution Width 13.7 11.8-14.3 % Platelet Count 285 140-450 10^3/uL Mean Platelet Volume 8.2 6.9-10.8 fL Neutrophils (%) (Auto) 54.7 37.0-80.0 % Lymphocytes (%) (Auto) 29.9 10.0-50.0 % Monocytes (%) (Auto) 9.8 0.0-12.0 % Eosinophils (%) (Auto) 4.8 0.0-7.0 % Basophils (%) (Auto) 0.8 0.0-2.0 % Neutrophils # (Auto) 4.4 1.6-8.6 10 ^3/uL Lymphocytes # (Auto) 2.4 0.4-5.4 10 ^3/uL Monocytes # (Auto) 0.8 0-1.3 10 ^3/uL Eosinophils # (Auto) 0.4 0-0.8 10 ^3/uL Basophils # (Auto) 0.1 0-0.2 10 ^3/uL Nucleated Red Blood Cells 0.2 % Sodium Level 139 136-145 mmol/L Potassium Level 4.0 3.5-5.1 mmol/L Chloride Level 106 98-107 mmol/L Carbon Dioxide Level 26 20-31 mmol/L Anion Gap 7 5-15 Blood Urea Nitrogen 8 L 9-23 mg/dL Creatinine 1.06 H 0.550-1.02 mg/dL Glomerular Filtration Rate Calc 69 >90 mL/min BUN/Creatinine Ratio 7.5 L 10.0-20.0 Serum Glucose 166 H 74-106 mg/dL Calcium Level 8.9 8.7-10.4 mg/dL Urine Color Yellow Yellow Urine Clarity Clear Clear Urine pH 6.0 5.0-9.0 Urine Specific [place] 1.035 1.001-1.035 Urine Protein 2+ H Negative Urine Ketones 4+ H Negative Urine Blood Negative Negative /uL Urine Nitrite Negative Negative Urine Bilirubin 1+ H Negative Urine Urobilinogen 4 H Negative mg/dL Urine Leukocyte Esterase 1+ Negative /uL Urine RBC 8 0 - 4 /hpf Urine Microscopic WBC 33 H 0-5 /HPF Urine Squamous Epithelial Cells Few <5 /hpf Urine Bacteria Few H None Seen /hpf Urine Mucus Few None Seen Urine Glucose 2+ H Normal mg/dL [place] [id number] Ph: [phone] DIAGNOSTIC IMAGING Diagnostic Imaging Report : [id number] Signed PATIENT: LUKASZ BLOCK ACCT: [id number] UNIT: [id number] : 1985 LOC: ER ROOM / BED: / AGE / SEX: 39 / F ADM STATUS: REG ER SERVICE [id number] ORDERING PHYSICIAN: GABRIELLA CATES MD PROCEDURE(s): ABPL - CT AB PEL WO CON-NO ORAL OR IV REASON: left flank pain, r/o kidney stone ORDER NUMBER(s): [id number], ACCESSION NUMBER(s): [id number] Exam: CT CT AB PEL WO CON-NO ORAL OR IV History: left flank pain, r/o kidney stone Comparison Study: CT CT AB PEL WO CON-NO ORAL OR IV on DOS: 01/10/24 TECHNIQUE: Multidetector CT of the abdomen and pelvis was performed from lung bases to pubic symphysis. Imaging was performed without IV contrast. Axial, coronal, and sagittal multiplanar reformats were obtained from the axial data set by the technologist. RADIATION DOSE: CTDI vol 27.8 mGy. DLP 1498.98 mGy.cm Findings: Limited evaluation of the solid organs in the absence of IV contrast. Lungs: Mild basilar atelectasis/scarring. Liver: Unremarkable. Spleen: Unremarkable. Pancreas: Unremarkable. Gallbladder: Contracted in appearance. Adrenals: Unremarkable Kidneys: Unremarkable. Pelvic Viscera: Unremarkable. Vasculature: Unremarkable. Retroperitoneum: Shotty retroperitoneal nodes. No ascites. Bowel: No bowel obstruction. The appendix is normal. Musculoskeletal: Unremarkable. Soft tissues: Tiny fat containing umbilical hernia. Impression: 1. No obstructing renal calculus or acute abdominopelvic abnormality. 2. Incidental findings as detailed. ATED BY: SURAJ RENNER MD DICTATED DATE/TIME: 10/10/241913 SIGNED BY: SURAJ RENNER MD SIGNED DATE/TIME: 10/10/241913 CC: Time of 1ST Reevaluation: 19:00 Reevaluation 1ST: Unchanged Time of 2ND Reevaluation: 20:48 Reevaluation 2ND: Patient Education/Counseling: Diagnosis, Treatment, Other (need for admission ) Family Education/Counseling: No Family Present Comments Patient has no where to be found. We will continue to look for her Additional Information I reviewed the following notes from patient's past medical encounters: January 10, 2024 encounter for abdominal pain The following tests were ordered, and results were reviewed by me: JBMP, CBC, UA, CT abdomen/pelvis w/o contrast Additional Information was gathered from interviewing the following independent historians: N/A I reviewed and agreed with the following test results read by other providers: CT abdomen/pelvis w/o contrast I discussed treatment and results with medical personnel. SEPSIS Sepsis Screen Date sepsis recognized/suspect: Oct 10, 2024 Time Sepsis recognized/suspect: 1816 Recent Procedure: No On Antibiotic Therapy: No Respiratory Rate >20: No Heart Rate >90: No Temp<36 C (96.8 F) or >38.3 C: No SBP <90 or MAP <65 mmHG: No New Acute Mental Status Change: No Is the patient on CPAP, BIPAP,: No Physician Orders Ct Ab Pel Wo Con-No Oral Or Iv (10/10/24 18:39) Sodium Chl 0.9% (Ns... W/Labetalol Injec (10/10/24 19:00) Vital Signs Date Time Temp Pulse Resp B/P (MAP) Pulse Ox O2 Delivery O2 Flow Rate FiO2 10/10/24 18:19 242/136 (171) 10/10/24 18:18 98.2 94 15 218/129 (158) 98 98.2 10/10/24 18:12 98.2 94 15 218/129 96 98.2 Laboratory Tests Test 10/10/24 18:46 White Blood Count 8.1 10^3/uL (4.4-10.8) Departure 1 Departure Time of Disposition: 20:49 Impression: Primary Impression: Hernia, umbilical Qualified Codes: K42.9 - Umbilical hernia without obstruction or gangrene Additional Impressions: Left flank pain Hypertensive urgency Disposition: ADMITTED INPATIENT Admit to: ICU Condition: Serious Discharged With: Self Critical Care Note Critical Care Time?: Yes (45 min-critical care time only) Critical care comment: Due to concerns for patients condition deteriorating, the care required my high est level of attention and readiness to intervene. I assessed the patient, reviewed the medical records, ordered the appropriate tests and treatments, then reassessed for results and responsiveness. I communicated with medical personnel and consultants and formulated a plan of care. Total critical care time excludes any procedures Stability Stability form required: No Heart Score Heart Score: Heart Score Response (Comments) Value History N/A 0 EKG N/A 0 Age N/A 0 Risk Factors N/A 0 Troponin N/A 0 Total 0 I personally scribed for GABRIELLA CATES MD ([email or web address]) on 10/10/24 at 19:00. Electronically submitted by Gilbert Cabrera ([email or web address]). I personally scribed for GABRIELLA CATES MD ([email or web address]) on 10/10/24 at 19:25. Electronically submitted by Gilbert Cabrera ([email or web address]). GABRIELLA CATES MD Oct 10, 2024 19:00
[2024-10-10 19:04] LABS: Chloride 106 mmol/L (98-107); Potassium 4.0 mmol/L (3.5-5.1); Sodium 139 mmol/L (136-145)
[2024-10-10 19:05] LABS: Anion Gap 7 (5-15); Calcium 8.9 mg/dL (8.7-10.4); Carbon Dioxide 26 mmol/L (20-31)
[2024-10-10 19:07] LABS: Hematocrit 40.0 % (36.0-46.0); Hemoglobin 13.8 g/dL (12.2-16.2); Mean Corpuscular Hemoglobin 30.5 pg (28.0-32.0); Mean Corpuscular Volume 88.3 fL (80.0-100.0); Nucleated Red Blood Cells % 0.2 %
[2024-10-10 19:10] LABS: BUN/Creatinine Ratio 7.5 (10.0-20.0)
--- NOTE | 2024-10-10 19:16 | DVH ---
Exam: CT CT AB PEL WO CON-NO ORAL OR IV History: left flank pain, r/o kidney stone Comparison Study: CT CT AB PEL WO CON-NO ORAL OR IV on DOS: 01/10/24 TECHNIQUE: Multidetector CT of the abdomen and pelvis was performed from lung bases to pubic symphysi s. Imaging was performed without IV contrast. Axial, coronal, and sagittal multiplanar reformats were obtained from the axial data set by the technologist. RADIATION DOSE: CTDI vol 27.8 mGy. DLP 1498.98 mGy.cm Findings: Limited evaluation of the solid organs in the absence of IV contrast. Lungs: Mild basilar atelectasis/scarring. Liver: Unremarkable. Spleen: Unremarkable. Pancreas: Unremarkable. Gallbladder: Contracted in appearance. Adrenals: Unremarkable Kidneys: Unremarkable. Pelvic Viscera: Unremarkable. Vasculature: Unremarkable. Retroperitoneum: Shotty retroperitoneal nodes. No ascites. Bowel: No bowel obstruction. The appendix is normal. Musculoskeletal: Unremarkable. Soft tissues: Tiny fat containing umbilical hernia. Impression: 1. No obstructing renal calculus or acute abdominopelvic abnormality. 2. Incidental findings as detailed.
[2024-10-10 19:20] LABS: Blood Urea Nitrogen 8 mg/dL (9-23); Glucose 166 mg/dL (74-106)
[2024-10-10 19:44] LABS: Urine Protein, UAD 2+ (Negative)
--- NOTE | 2024-10-10 21:32 | DVHHP2 ---
Admitting Diagnosis: flank pain History of Present Illness 39 y/o morbidly obese F presents with c/c left flank pain. Patient is a poor historian. She endorses on ongoing pain, intermittently, for the past several years, which starts from the left side of her back and wraps around and radiates to her groin. Significant history of breast cancer s/p mastectomy, DM, HTN, umbilical hernia, , and tobacco cigarette use. Patient reports on not seeing her PCP for awhile since last consultation regarding an umbilical hernia she has that is inoperable, due to size and patient's current weight disqualifying her from surgery. Patient denies having any nausea, vomiting, diarrhea, constipation, urinary symptoms, fever, chills, or further associated symptoms. PAST MEDICAL HISTORY: Anxiety, Cancer (breast ), Depression, DM, HTN, Schizophrenia Past Medical History (Other): Umbilical hernia Morbid obesity Surgical History: Surgical History (Other): Mastectomy PHYSICIAN CHIEF OF PATHOLOGY History: No Pertinent PHYSICIAN CHIEF OF PATHOLOGY History Family History Family History: Reviewed,noncontributory to illness, Family hx of DM, Family hx of Cancer, Family hx of heart rohan Social History Smoker: Cigarettes, Less Than 1 Pack/Day Alcohol: Denies ETOH Use Drugs: Denies Drug Use Lives In: Home Patient Family History: Patient reports no known family medical history. Allergies: Coded Allergies: Gabapentin (Verified Allergy, Severe, 09/15/17) Diphenhydramine (Verified Allergy, Unknown, 05/31/21) Home Meds Active Scripts Acetaminophen (Acetaminophen) 500 Mg Tab, 500 MG PO Q4HPRN, #30 TAB 0 Refills Prov:RASHAAD GERMAIN 01/06/24 Prednisone (Prednisone) 10 Mg Tab, 10 MG PO BID for 5 Days, #10 TAB 0 Refills Prov:RASHAAD GERMAIN 01/06/24 Amoxicillin & Pot Clavulanate (Amoxicillin/Potassium Cla) 500 Mg Tab, 1 TAB PO BID for 7 Days, #14 TAB 0 Refills Prov:RASHAAD GERMANI 01/06/24 Reported Medications Hydroxyzine Pamoate (Hydroxyzine Pamoate) 50 Mg Cap, 50 MG PO DAILY, #30 08/10/16 Topiramate (Topiramate) 100 Mg Tab, 100 MG PO DAILY, #30 08/10/16 Canagliflozin (INVOKANA) 100 Mg Tab, 100 MG PO DAILY, #30 08/10/16 Metformin Hydrochloride (Metformin Hcl) 500 Mg Tab, 500 MG PO BID, #60 08/10/16 Alprazolam (Alprazolam) 1 Mg Tab, 1 MG PO BID, #60 08/10/16 Fluoxetine HCl (Fluoxetine HCl) 20 Mg Cap, 20 MG PO DAILY, #30 08/10/16 Amlodipine Besylate (Amlodipine Besylate) 10 Mg Tab, 10 MG PO DAILY, #30 08/10/16 Vital Signs Vital Signs Date Time Temp Pulse Resp B/P (MAP) Pulse Ox O2 Delivery O2 Flow Rate FiO2 10/10/24 18:19 242/136 (171) 10/10/24 18:18 98.2 94 15 98 98.2 Physical Exam Generally 39 years old woman, morbidly obese, sitting on chair. Mild distress HEENT-atraumatic normocephalic Heart-regular rate and rhythm Lungs decreased breath sounds due to body habitus Abdomen soft nontender nondistended Musculoskeletal-no edema cyanosis Neuro-AO x3, no focal deficits SEPSIS Sepsis Screen Date sepsis recognized/suspect: Oct 10, 2024 Time Sepsis recognized/suspect: 1816 Recent Procedure: No On Antibiotic Therapy: No Respiratory Rate >20: No Heart Rate >90: No Temp<36 C (96.8 F) or >38.3 C: No SBP <90 or MAP <65 mmHG: No New Acute Mental Status Change: No Is the patient on CPAP, BIPAP,: No Physician Orders Ct Ab Pel Wo Con-No Oral Or Iv (10/10/24 18:39) Sodium Chl 0.9% (Ns... W/Labetalol Injec (10/10/24 19:00) Vital Signs Date Time Temp Pulse Resp B/P (MAP) Pulse Ox O2 Delivery O2 Flow Rate FiO2 10/10/24 18:19 242/136 (171) 10/10/24 18:18 98.2 94 15 218/129 (158) 98 98.2 10/10/24 18:12 98.2 94 15 218/129 96 98.2 Laboratory Tests Test 10/10/24 18:46 White Blood Count 8.1 10^3/uL (4.4-10.8) Results Labs Test 10/10/24 18:46 10/10/24 00:00 Range/Units White Blood Count 8.1 4.4-10.8 10^3/uL Red Blood Count 4.53 4.0-5.20 10^6/uL Hemoglobin 13.8 12.2-16.2 g/dL Hematocrit 40.0 36.0-46.0 % Mean Corpuscular Volume 88.3 80.0-100.0 fL Mean Corpuscular Hemoglobin 30.5 28.0-32.0 pg Mean Corpuscular Hemoglobin Concent 34.6 32.0-36.0 g/dL Red Cell Distribution Width 13.7 11.8-14.3 % Platelet Count 285 140-450 10^3/uL Mean Platelet Volume 8.2 6.9-10.8 fL Neutrophils (%) (Auto) 54.7 37.0-80.0 % Lymphocytes (%) (Auto) 29.9 10.0-50.0 % Monocytes (%) (Auto) 9.8 0.0-12.0 % Eosinophils (%) (Auto) 4.8 0.0-7.0 % Basophils (%) (Auto) 0.8 0.0-2.0 % Neutrophils # (Auto) 4.4 1.6-8.6 10 ^3/uL Lymphocytes # (Auto) 2.4 0.4-5.4 10 ^3/uL Monocytes # (Auto) 0.8 0-1.3 10 ^3/uL Eosinophils # (Auto) 0.4 0-0.8 10 ^3/uL Basophils # (Auto) 0.1 0-0.2 10 ^3/uL Nucleated Red Blood Cells 0.2 % Sodium Level 139 136-145 mmol/L Potassium Level 4.0 3.5-5.1 mmol/L Chloride Level 106 98-107 mmol/L Carbon Dioxide Level 26 20-31 mmol/L Anion Gap 7 5-15 Blood Urea Nitrogen 8 L 9-23 mg/dL Creatinine 1.06 H 0.550-1.02 mg/dL Glomerular Filtration Rate Calc 69 >90 mL/min BUN/Creatinine Ratio 7.5 L 10.0-20.0 Serum Glucose 166 H 74-106 mg/dL Calcium Level 8.9 8.7-10.4 mg/dL Urine Color Yellow Yellow Urine Clarity Clear Clear Urine pH 6.0 5.0-9.0 Urine Specific [place] 1.035 1.001-1.035 Urine Protein 2+ H Negative Urine Ketones 4+ H Negative Urine Blood Negative Negative /uL Urine Nitrite Negative Negative Urine Bilirubin 1+ H Negative Urine Urobilinogen 4 H Negative mg/dL Urine Leukocyte Esterase 1+ Negative /uL Urine RBC 8 0 - 4 /hpf Urine Microscopic WBC 33 H 0-5 /HPF Urine Squamous Epithelial Cells Few <5 /hpf Urine Bacteria Few H None Seen /hpf Urine Mucus Few None Seen Urine Glucose 2+ H Normal mg/dL Primary Diagnosis Hypertensive emergency Urinary tract infection Umbilical hernia non strangulated Plan Ceftriaxone 1 g q.day. Follow the urine culture IV fluids Nicardipine drip for hypertensive emergency Cardiac diet Check echo of the heart for hypertensive emergency however Pain control Antiemetic Full code Lovenox for DVT prophylaxis No GI prophylaxis needed Plan discussed with: Patient Problems List: (1) Hypertensive emergency Date of Service: Oct 10, 2024 Billing Provider: IMAN CHANEY MD Common Visit Codes: [id number] CARE 30-74 MIN IMAN CHANEY MD Oct 10, 2024 21:32
[2024-10-10] MEDS ORDERED: DOCUSATE SOD 100 MG CAP PO PRN (22:00)
[2024-10-10] MEDS ORDERED: ACETAMINOPHEN 325 MG TAB PO PRN (22:00)
[2024-10-10] MEDS ORDERED: ONDANSETRON HCL 4 MG/2 ML VIAL IV PRN (22:00)
[2024-10-10] MEDS ORDERED: SODIUM CHLOR 0.9% PF (SALINE LOCK) 10ML VIAL/SYR IV SCH (22:00)
[2024-10-10] MEDS ORDERED: HYDROcodone-ACET 5/325MG TAB PO PRN (22:00)
[2024-10-10] MEDS ORDERED: HYDROmorphone HCL 2 MG/ML VL/or syr IV PRN (22:00)
[2024-10-10] MEDS ORDERED: NICARDIPINE HCL IN SODIUM CHLO 200 ML IV SCH (22:00)
[2024-10-10] MEDS ORDERED: cefTRIAXone 1GM/50ML D5W 50 ML IV SCH (22:00)
[2024-10-11] MEDS ORDERED: ENOXAPARIN SOD 40 MG/0.4 ML SYRINGE SC SCH (10:00)
== END 2024-10-10 22:39 | disposition left against medical advice (07) | DRG 463 ==
LOC: ER 18:11 → OVERFLOW 21:57
PROVIDERS: ADMIT Internal Medicine; ATTEND Internal Medicine
DX: N30.00 Acute cystitis without hematuria (principal); Z68.43 Body mass index [BMI] 50.0-59.9, adult; I16.1 Hypertensive emergency; E11.9 Type 2 diabetes mellitus without complications; E66.01 Morbid (severe) obesity due to excess calories; F17.210 Nicotine dependence, cigarettes, uncomplicated; Z53.29 Procedure and treatment not carried out because of patient's decision for other reasons; K42.9 Umbilical hernia without obstruction or gangrene; F20.9 Schizophrenia, unspecified; F41.9 Anxiety disorder, unspecified; Z88.8 Allergy status to other drugs, medicaments and biological substances; Z79.2 Long term (current) use of antibiotics; Z79.899 Other long term (current) drug therapy; Z90.10 Acquired absence of unspecified breast and nipple; Z85.3 Personal history of malignant neoplasm of breast; Z98.891 History of uterine scar from previous surgery
CPT/HCPCS: 36415; 74176; 80048; 81001; 84484; 85025; 87086; 99291; G0378